=== PATIENT | male | born 1960 | race African-American/Black ===

== ENCOUNTER 2018-05-10 11:12 | Emergency (ER) | payer BC ==
[~2018-05-10] VITALS: Ht 180.3 cm; Wt 83.5 kg
--- NOTE | ~2018-05-10 | EKG ---
[facility] [place] [address] ELECTROCARDIOGRAM REPORT Name: EMILIANO CHANG [id number] Admission: 05/10/18 Attend Phys: Discharge: 05/10/18 Date of : 64 Report #: [id number] THIS REPORT FOR: //name// [facility] ED Test Date: 2018-05-10 Test Time: 11:26:44 Pat Name: EMILIANO CHANG Department: Room: Gender: M Cavalry Officer: BRITANY : 1960 Requested By: Breann Aguila Order Number: [id number] MD: Solo Flood Measurements Intervals [place] Rate: 68 P: 11 W[place]: 134 QRS: 26 QRSD: 85 T: 31 QT: 393 QTc: 418 Interpretive Statements Sinus rhythm Borderline low voltage, extremity leads Minimal, diffuse ST elevation Compared to ECG 09/20/2006 15:32:53 No significant change was found Electronically Signed On 05-11-2018 8:54:18 CDT by Solo Flood [email or web address] <ELECTRONICALLY SIGNED> By: Solo Flood MD, [facility] 05/11/18 0854 112 Solo Flood MD, [facility] /EPI
[2018-05-10] MEDS ORDERED: ZANTAC 150MG T150 MG PO (11:24)
[2018-05-10] MEDS ORDERED: NEXIUM40 MG PO (11:24)
[2018-05-10 12:00] LABS: ABSOLUTE NEUTROPHILS 2.2 thou/uL (1.4-8.2); BASOPHILS 0.4 % (0.0-2.0); EOSINOPHILS 3.8 % (0.0-3.0); HEMATOCRIT 43.2 % (42.0-52.0); HEMOGLOBIN 14.3 gm/dL (14.0-18.0); LYMPHOCYTES 40.3 % (24.0-44.0); MCH 29.5 pg (26.0-34.0); MCHC 33.1 g/dL (28.0-37.0); MCV 89.1 fL (80.0-100.0); MONOCYTES 8.2 % (1.0-8.0); PLATELET COUNT 279 thou/uL (150-400); POLYS 47.3 % (36.0-66.0); RBC 4.84 mil/uL (4.50-6.00); WBC 4.7 thou/uL (4.0-11.0)
[2018-05-10 12:12] LABS: CALCIUM 9.8 mg/dL (8.5-10.1); CREATININE 1.1 mg/dL (0.7-1.3)
[2018-05-10 12:18] LABS: ALBUMIN 4.2 g/dL (3.4-5.0); DIRECT BILIRUBIN 0.1 mg/dL (<0.1-0.3); TOTAL BILIRUBIN 0.7 mg/dL (<0.1-1.0); TOTAL PROTEIN 8.5 g/dL (6.4-8.2)
[2018-05-10 12:58] VITALS: BP 130/90
== END 2018-05-10 13:09 | disposition home or self-care (01) ==
LOC: ER 11:12
PROVIDERS: Emergency Medicine
DX: K21.9 Gastro-esophageal reflux disease without esophagitis (principal); Z87.891 Personal history of nicotine dependence

== ENCOUNTER 2018-09-01 09:21 | Emergency (ER) | payer BC ==
[~2018-09-01] VITALS: Ht 180.3 cm; Wt 84.4 kg
--- NOTE | ~2018-09-01 | EKG ---
[facility] [place] [address] ELECTROCARDIOGRAM REPORT Name: EMILIANO CHANG Room #: [facility]#: [id number] Admission: 09/01/18 Attend Phys: Discharge: 09/01/18 Date of : 64 Report #: [id number] THIS REPORT FOR: //name// [facility] Test Date: 2018-09-06 Test Time: 06:48:16 Pat Name: EMILIANO CHANG Department: Room: 208 P Gender: M Software Firmware Engineer: VERENICE : 1960 Requested By: Galo Mar Order Number: [id number] MD: Solo Flood Measurements Intervals [place] Rate: 59 P: 21 [place]: 119 QRS: 25 QRSD: 81 T: 22 QT: 410 QTc: 407 Interpretive Statements Sinus rhythm Borderline short [place] interval Borderline low voltage, extremity leads Borderline ST elevation, inferior and lateral leads Baseline wander in lead(s) V1 Compared to ECG 09/05/2018 19:08:01 ST (T wave) deviation now present Electronically Signed On 09-06-2018 7:39:18 SOLDER TECHNICIAN by Solo Flood [email or web address] <ELECTRONICALLY SIGNED> By: Solo Flood MD, [facility] 09/06/18 0739 0648 0648 Solo Flood MD, [facility] /EPI
[~2018-09-01 09:21] MED LIST: NEXIUM40 MG PO; ZANTAC 150MG T150 MG PO
[2018-09-01 09:23] VITALS: BP 127/74
[2018-09-01] MEDS ORDERED: NORCO 5-325 TA1 EACH PO (09:39)
[2018-09-01] MEDS ORDERED: NORFLEX100 MG PO (09:39)
[2018-09-01] MEDS ORDERED: PREDNISONE 10 M10 MG PO (09:39)
== END 2018-09-01 10:05 | disposition home or self-care (01) ==
LOC: ER 09:21
DX: M54.41 Lumbago with sciatica, right side (principal); M54.42 Lumbago with sciatica, left side; K21.9 Gastro-esophageal reflux disease without esophagitis; I10 Essential (primary) hypertension; E78.00 Pure hypercholesterolemia, unspecified; E78.5 Hyperlipidemia, unspecified; Z87.891 Personal history of nicotine dependence

== ENCOUNTER 2018-09-05 11:41 | Inpatient (IN) | payer BC ==
[~2018-09-05] VITALS: Ht 180.3 cm; Wt 90.4 kg
--- NOTE | ~2018-09-05 | EKG ---
[address] [address] ELECTROCARDIOGRAM REPORT Name: EMILIANO CHANG Room #: 208-P ADM IN M.R.#: [id number] Admission: 09/05/18 Attend Phys: Danny Rouse MD Discharge: Date of : 64 Report #: [id number] THIS REPORT FOR: //name// [facility] Test Date: 2018-09-05 Test Time: 16:08:00 Pat Name: EMILIANO CHANG Department: Room: 208 Gender: M Golf Club Manager: VERENICE : 1960 Requested By: Galo Mar Order Number: [id number] MD: José Mccoy Measurements Intervals [place] Rate: 57 P: 23 ID: 125 QRS: 32 QRSD: 105 T: 37 QT: 425 QTc: 414 Interpretive Statements Sinus rhythm Borderline low voltage, extremity leads Minimal ST elevation, Compared to ECG 05/10/2018 11:26:44 No significant changes Electronically Signed On 09-05-2018 19:32:14 GLOBAL REGULATORY AFFAIRS MANAGER by José Mccoy [email or web address] <ELECTRONICALLY SIGNED> By: José Mccoy MD 09/05/181931 1608 07 José Mccoy MD /MIKAL
--- NOTE | ~2018-09-05 | CATHLAB ---
[facility] [address] [place] [address] INVASIVE PROCEDURE REPORT Name: EMILIANO CHANG IV Room #: 208-P ADM IN M.R.#: [id number] Admission: 09/05/18 Attend Phys: Danny Rouse MD Discharge: Date of : 64 Date of Service: 09/06/18 1256 Report #: [id number] THIS REPORT FOR: //name// APPROVED REPORT Study performed: 09/05/2018 19:52:44 Patient Details Patient Status: In-Patient Room #: 208 The patient is a 58 year-old male Event Personnel Galo Mar Fraud Investigator, Sally Olivarez RTR, BUSINESS QUALITY ASSURANCE ANALYST Monitor, David Red RN RN, Mirza Ohara RT(R)(CV) Scrub Procedures Performed Art Access - R radial artery Coronary Angiography Only [id number] CORANG Hemostasis with Hemoband Indication Chest pain, Shortly after his angioplasty procedure, he reported chest discomfort. He was initially treated with nitroglycerin, morphine and a GI cocktail. Multiple ECGs were done, with equivocal changes. The chest pain became more intense and he had nonsustained VT on the monitor. Risk Factors Family History, Hypercholesterolemia, Coronary Artery DiseaseHypertension Previous Procedures/Diagnoses Previous PCI Procedure Narrative The Right Wrist^ was infiltrated with 1% Lidocaine subcutaneous anesthesia. A TRANSRADIAL SLENDER 6F GLICasengoTH KIT #[id number] sheath was inserted into the Right Radial Artery^. Coronary angiography was performed using coronary diagnostic catheters. The left coronary system was accessed and visualized with a JL3.5 catheter. The patient tolerated the procedure well and there were no complications associated with the procedure. Intraoperative Conscious Sedation No sedation given. [facility] [address] [place] [address] INVASIVE PROCEDURE REPORT Name: EMILIANO CHANG Adam Room #: [address] [place] [address] [place] [facility]#: [id number] Admission: 09/05/18 Attend Phys: Danny Rouse MD Discharge: Date of : 64 Date of Service: 09/06/18 1256 Report #: [id number] Fluoro Time: 1.14 minutes Dose: DAP 1560.70 cGycm2 202 mGy Contrast Type and Amount: Omnipaque 40 ml Coronary Angiography The patient's coronary anatomy is right dominant. Diagnostic Cath Left Main Patent vessel, with no flow-limiting lesions. LAD The LAD is widely patent. There is no evidence for any flow-limiting lesions within the stented area in the proximal segment of the LAD. There is ELIZA-3 blood flow down the LAD. Circumflex Unchanged from previous description. Left Ventriculography Left Ventriculography was not performed. Hemodynamics The aortic pressure is 136/89 mmHg with a mean of 110 mmHg. Conclusion 1. Indication was continuous chest pain similar to his initial presentation. His symptoms did not change with medical therapy, in fact the intensity increased. 2. Patent stent in the proximal LAD with no evidence for flow limiting lesions. 3. Continue dual antibiotic therapy. 4. The patient tolerated the procedure without any complications. <ELECTRONICALLY SIGNED> By: Galo Mar MD 09/06/18 1256 1256 1256 Galo Mar MD /INF
--- NOTE | ~2018-09-05 | HC ---
[facility] [place] [address] CONSULTATION Name: EMILIANO CHANG Room #: [address] [place] [address] IN M.R.#: [id number] Admission: 09/05/18 Attend Phys: Danny Rouse MD Discharge: Date of : 64 Report #: [id number] THIS REPORT FOR: //name// CC: Marcos Rouse DATE OF SERVICE: 09/05/2018 TYPE OF REPORT: Cardiology consultation. INDICATION: Chest pain. HISTORY OF PRESENT ILLNESS: This is a 58-year-old gentleman with a history of hypertension, GERD, hypercholesterolemia, strong family history for premature CAD, presenting with chest pain. He developed chest discomfort this morning across the chest area with numbness in both fingers. He felt mildly dyspneic and diaphoretic. He presented to the ER for an evaluation. Initial EKG reveals sinus rhythm with no acute ST-segment changes. He has serial EKGs performed and no significant change. The troponin came back at 0.13. He had persistent pain and the plan is to take the patient to the cardiac radiographer cardiac catheterization. There is no history of fever, cough, nausea or diarrhea. PAST MEDICAL HISTORY: Hypertension and hypercholesterolemia. Follows with Dr. Marcos Melton. History of GERD and recently diagnosed with sciatica. ALLERGIES: None. MEDICATIONS: Include Nexium and lisinopril 10 mg daily. SOCIAL HISTORY: Denies tobacco use. FAMILY HISTORY: Father with a history of an OR in his 40s. REVIEW OF SYSTEMS: A full 10-point review of systems performed. Only the pertinent positives and negatives are described in the HPI. PHYSICAL EXAMINATION: VITAL SIGNS: Blood pressure is 140/80 and heart rate is 75 beats per minute. GENERAL APPEARANCE: A well-developed and well-nourished male, in no acute respiratory distress. HEENT: Normocephalic and atraumatic. Oral mucosa moist. NECK: Supple. LUNGS: Clear to auscultation. CARDIOVASCULAR: Regular rate and rhythm. S1 and S2 positive. ABDOMEN: Soft and nontender. EXTREMITIES: No cyanosis and no edema. [facility] [address] [place] [address] CONSULTATION Name: EMILIANO CHANG Adam Room #: [facility] ADM IN M.R.#: [id number] Admission: 09/05/18 Attend Phys: Danny Rouse MD Discharge: Date of : 64 Report #: [id number] NEUROLOGICAL: Alert and oriented x 3. RADIOLOGICAL DATA: ECG reveals sinus rhythm, nonspecific ST-segment abnormality. LABORATORY VALUES: Troponin 0.13. ASSESSMENT AND PLAN: 1. Eic-AV-vskbsmmng myocardial infarction, the patient presenting with persistent pain, unrelieved with medical therapy. We will proceed with an emergent cardiac catheterization. 2. Hypertension, continue with lisinopril. 3. Hypercholesterolemia, start a statin medication. 4. Gastroesophageal reflux disease, continue with a proton pump inhibitor. <ELECTRONICALLY SIGNED> By: Galo Mar MD 09/06/18 0807 1454 2354 MD trisha Lea
--- NOTE | ~2018-09-05 | CATHLAB ---
[facility] [address] [place] [address] INVASIVE PROCEDURE REPORT Name: EMILIANO CHANG Room #: 208-P ADM IN .R.#: [id number] Admission: 09/05/18 Attend Phys: Danny Rouse MD Discharge: Date of : 64 Date of Service: 09/06/18 1251 Report #: [id number] THIS REPORT FOR: //name// APPROVED REPORT Study performed: 09/05/2018 13:42:51 Patient Details Patient Status: ED Room #: The patient is a 58 year-old male Event Personnel Galo Mar Ammonium Nitrate Neutralizer, Sally Olivarez RTR, ASSISTANT TRACK AND FIELD COACH Monitor, David Red RN RN, Mirza Ohara RT(R)(CV) Scrub Procedures Performed Art Access - R femoral artery* Left Heart Cath w/or w/o Coronaries [id number] [facility] [place] Place w/wo Plasty Single LAD 514092 21050 Initial Mod Sed Same Phys/QHP Gr5y 711261 92281 Mod Sed Same Phys/QHP Ea 991726 Hemostasis with Manual pressure Indication Non-STEMI (>0 to less than or equal to 6 hours), Dyspnea, Chest pain Risk Factors Family History, Hypercholesterolemia, Hypertension Procedure Narrative The Right Groin^ was infiltrated with 1% Lidocaine subcutaneous anesthesia. A PINNACLE 4FR Sheath #[id number] sheath was inserted into the RFA^. Coronary angiography was performed using coronary diagnostic catheters. The right coronary system was accessed and visualized with a JR4 catheter. The left coronary system was accessed and visualized with a JL4 catheter. The left ventricle was accessed and visualized with a ANGLED PIGTAIL catheter. Left ventricular/Aortic Valve gradient assessed via catheter pullback. Left ventriculogram was performed in 30 degree projection. Pre-demployment femoral angiogram was performed . Hemostasis was obtained with manual pressure following sheath removal without any complications. The patient tolerated the procedure well and there were no complications associated with the procedure. There was no hematoma. [facility] [address] [place] [address] INVASIVE PROCEDURE REPORT Name: EMILIANO CHANG Room #: 208-P [facility] IN ..#: [id number] Admission: 09/05/18 Attend Phys: Danny Rouse MD Discharge: Date of : 64 Date of Service: 09/06/18 1251 Report #: [id number] Intraoperative Conscious Sedation Sedation start time: 14:12 Case end Time: 15:12 Versed mg Fluoro Time: 10.17 minutes Dose: DAP 7656.40 cGycm2 1069 mGy Contrast Type and Amount: Omnipaque 215 ml Coronary Angiography The patient's coronary anatomy is right dominant. Diagnostic Cath Left Main This is a patent vessel, with no flow-limiting lesions. LAD There is a severe, discrete stenosis in the proximal segment, at least 95%. There is mild diffuse disease in the mid segment, 30%. Diagonal 1 Small-caliber vessel with mild to moderate diffuse disease proximally, 40%. Circumflex There is a mild to moderate stenosis in the proximal segment, 40%. OM1 This is a patent vessel, with no flow-limiting lesions. OM2 This is a moderate size caliber vessel, with mild disease proximally, 20%. Right Coronary This is a dominant vessel, with mild disease in the mid segment, 20%. R PDA This is a patent vessel, with no flow-limiting lesions. RPLV This is a patent vessel, with no flow-limiting lesions. Left Ventriculography The left ventricle is normal in size with normal contractility. The left ventricular ejection fraction is estimated to be 55-60%. Hemodynamics The aortic pressure is 137/82 mmHg with a mean of 106 mmHg. The left ventricular pressure is 138/11 mmHg with a mean of mmHg. The left ventricular end diastolic pressure is 35 mmHg. PCI Technique Lesion Percutaneous coronary intervention was performed on the proximal left anterior descending artery segment. The lesion stenosis prior to intervention was 95% with ELIZA 3 flow. A VISTA 6FR JL4 #[id number] [place] [address] INVASIVE PROCEDURE REPORT Name: EMILIANO CHANG Room #: 208-P ADM IN M.R.#: [id number] Admission: 09/05/18 Attend Phys: Danny Rouse MD Discharge: Date of : 64 Date of Service: 09/06/18 1251 Report #: [id number] Catheter was used to engage the ostium. A Luge Wire .014 x 182CM #[id number] Interventional Guidewire was used to cross the lesion. BALLOON DILATION A Balloon catheter Euphora RX 2.5 x 12 #[id number] was inserted and inflated up to 8.00atm for 12seconds. STENT DEPLOYMENT A drug-eluting stent RESOLUTE KENNY RX 3.0 X 15 #[id number] was inserted and inflated up to 16.00atm for 25seconds. POST STENT DEPLOYMENT BALLOON DILATION A Balloon catheter TREK NC RX 3.25 X 12 #[id number] was inserted and inflated up to 18.00atm for 18seconds. Additional Inflation: 18.00atm for 14seconds. Final angiography reveals 0 % stenosis with ELIZA 3 flow. Conclusion 1. Successful insertion of a drug-eluting stent into the proximal LAD segment. 2. Mild to moderate disease in the LAD, left circumflex and RCA. 3. Normal LV systolic function. 4. Recommend dual antiplatelet therapy and aggressive risk factor management. <ELECTRONICALLY SIGNED> By: Galo Mar MD 09/06/18 1251 50 50 Galo Mar MD /INF
--- NOTE | ~2018-09-05 | EKG ---
[address] [address] ELECTROCARDIOGRAM REPORT Name: EMILIANO CHANG Room #: 208-P ADM IN M.R.#: [id number] Admission: 09/05/18 Attend Phys: Danny Rouse MD Discharge: Date of : 64 Report #: [id number] THIS REPORT FOR: //name// [facility] Test Date: 2018-09-05 Test Time: 19:08:01 Pat Name: EMILIANO CHANG Department: Room: 208 P Gender: M Over Short And Damage Clerk: connie : 1960 Requested By: Galo Mar Order Number: [id number] MD: José Mccoy Measurements Intervals [place] Rate: 67 P: 23 [place]: 111 QRS: 18 QRSD: 86 T: 16 QT: 410 QTc: 433 Interpretive Statements Sinus rhythm Borderline short [place] interval Compared to ECG 05/10/2018 11:26:44 ST (T wave) deviation no longer present Electronically Signed On 09-05-2018 19:34:37 DIRECTOR OF MUSIC by José Mccoy [email or web address] <ELECTRONICALLY SIGNED> By: José Mccoy MD 09/05/18 1934 07 07 José Mccoy MD /MIKAL
--- NOTE | ~2018-09-05 | EKG ---
[address] [address] ELECTROCARDIOGRAM REPORT Name: EMILIANO CHANG Room #: 208-P ADM IN M.R.#: [id number] Admission: 09/05/18 Attend Phys: Danny Rouse MD Discharge: Date of : 64 Report #: [id number] THIS REPORT FOR: //name// [facility] ED Test Date: 2018-09-05 Test Time: 12:32:01 Pat Name: EMILIANO CHANG Department: Room: 208 Gender: M Distance Learning Unit Leader: JOCY : 1960 Requested By: Peter Brady Order Number: [id number] MD: José Mccoy Measurements Intervals [place] Rate: 60 P: 23 [place]: 131 QRS: 30 QRSD: 91 T: 56 QT: 416 QTc: 416 Interpretive Statements Sinus rhythm Borderline low voltage, extremity leads ST elevation diffuse similar to prior Compared to ECG 05/10/2018 11:26:44 No significant changes Electronically Signed On 09-05-2018 19:30:29 HOLD WORKER by José Mccoy [email or web address] <ELECTRONICALLY SIGNED> By: José Mccoy MD 09/05/181929 123 123 José Mccoy MD /MIKAL
--- NOTE | ~2018-09-05 | EKG ---
[address] [address] ELECTROCARDIOGRAM REPORT Name: EMILIANO CHANG Room #: 208-P ADM IN M.R.#: [id number] Admission: 09/05/18 Attend Phys: Danny Rouse MD Discharge: Date of : 64 Report #: [id number] THIS REPORT FOR: //name// [facility] ED Test Date: 2018-09-05 Test Time: 11:49:31 Pat Name: EMILIANO CHANG Department: Room: 208 Gender: M Pinked Edge Sewing Machine Operator: JOCY : 1960 Requested By: Peter Brady Order Number: [id number] MD: José Mccoy Measurements Intervals [place] Rate: 71 P: 29 [place]: 125 QRS: 38 QRSD: 91 T: 62 QT: 402 QTc: 437 Interpretive Statements Sinus rhythm Probable left atrial enlargement Borderline low voltage, extremity leads Diffuse ST elevation similar to prior Compared to ECG 05/10/2018 11:26:44 No significant changes Electronically Signed On 09-05-2018 19:30:08 HOSPITAL INSURANCE CLERK by José Mccoy [email or web address] <ELECTRONICALLY SIGNED> By: José Mccoy MD 09/05/18 1930 1149 1149 José Mccoy MD /EPI
[~2018-09-05 11:41] MED LIST changes: +NORCO 5-325 TA1 EACH PO; +NORFLEX100 MG PO; +PREDNISONE 10 M10 MG PO
[2018-09-05 11:43] VITALS: BP 151/85
[2018-09-05 11:58] LABS: ABSOLUTE NEUTROPHILS 3.3 thou/uL (1.4-8.2); BASOPHILS 0.6 % (0.0-2.0); EOSINOPHILS 1.7 % (0.0-3.0); HEMATOCRIT 42.4 % (42.0-52.0); HEMOGLOBIN 14.1 gm/dL (14.0-18.0); LYMPHOCYTES 45.8 % (24.0-44.0); MCH 29.3 pg (26.0-34.0); MCHC 33.2 g/dL (28.0-37.0); MCV 88.3 fL (80.0-100.0); MONOCYTES 7.6 % (1.0-8.0); PLATELET COUNT 294 thou/uL (150-400); POLYS 44.3 % (36.0-66.0); RDW 13.1 % (10.5-14.5); WBC 7.5 thou/uL (4.0-11.0)
[2018-09-05 12:07] LABS: CALCIUM 10.1 mg/dL (8.5-10.1); CREATININE 1.1 mg/dL (0.7-1.3); POTASSIUM 3.4 mmol/L (3.5-5.1)
[2018-09-05 12:16] LABS: TROPONIN-I 0.13 ng/mL (<0.06)
[2018-09-05 14:02] VITALS: BP 116/74
[2018-09-05 19:19] VITALS: BP 137/91
[2018-09-06 00:05] VITALS: BP 102/70
[2018-09-06 04:02] LABS: CALCIUM 8.6 mg/dL (8.5-10.1); TOTAL BILIRUBIN 0.5 mg/dL (<0.1-1.0); TOTAL PROTEIN 6.2 g/dL (6.4-8.2)
[2018-09-06 04:03] LABS: TROPONIN-I 3.25 ng/mL (<0.06)
[2018-09-06 04:23] VITALS: BP 114/73
[2018-09-06 04:30] LABS: HEMATOCRIT 37.1 % (42.0-52.0); HEMOGLOBIN 12.3 gm/dL (14.0-18.0); MCH 29.2 pg (26.0-34.0); MCHC 33.1 g/dL (28.0-37.0); MCV 88.4 fL (80.0-100.0); RBC 4.19 mil/uL (4.50-6.00); RDW 12.8 % (10.5-14.5); WBC 6.7 thou/uL (4.0-11.0)
[2018-09-06 08:47] VITALS: BP 110/77
[2018-09-06 12:23] VITALS: BP 118/79
[2018-09-06 16:00] VITALS: BP 122/75
[2018-09-06 19:43] VITALS: BP 123/86
[2018-09-07 00:16] VITALS: BP 137/82
[2018-09-07 04:47] VITALS: BP 150/94
[2018-09-07 08:09] VITALS: BP 142/92
[2018-09-07] MEDS ORDERED: ATORVASTATIN CA40 MG PO (08:41)
[2018-09-07] MEDS ORDERED: EFFIENT10 MG PO (08:41)
[2018-09-07] MEDS ORDERED: CEFUROXIME500 MG PO (08:41)
[2018-09-07] MEDS ORDERED: ASPIR 8181 MG PO (08:42)
[2018-09-07] MEDS ORDERED: ALTACE5 MG PO (08:42)
[2018-09-07 09:14] VITALS: BP 142/92
== END 2018-09-07 11:01 | disposition home or self-care (01) | DRG 247 ==
LOC: ER 11:41 → EROBS 14:14 → TBA 14:14 → 2N 15:34 → ENTRNSPT 09-07 10:55 → 2N 09-07 11:01
PROVIDERS: Emergency Medicine; Internal Medicine Cardiovascular Disease
PROC: 027034Z Dilation of Coronary Artery, One Artery with Drug-eluting Intraluminal Device, Percutaneous Approach (ICD-10-PCS; principal; 2018-09-06)
PROC: 4A023N7 Measurement of Cardiac Sampling and Pressure, Left Heart, Percutaneous Approach (ICD-10-PCS; principal; 2018-09-06)
PROC: B2151ZZ Fluoroscopy of Left Heart using Low Osmolar Contrast (ICD-10-PCS; principal; 2018-09-06)
PROC: B41J1ZZ Fluoroscopy of Other Lower Arteries using Low Osmolar Contrast (ICD-10-PCS; principal; 2018-09-06)
PROC: B2111ZZ Fluoroscopy of Multiple Coronary Arteries using Low Osmolar Contrast (ICD-10-PCS; principal; 2018-09-06)
DX: I21.3 ST elevation (STEMI) myocardial infarction of unspecified site (principal); I25.10 Atherosclerotic heart disease of native coronary artery without angina pectoris; I10 Essential (primary) hypertension; E78.00 Pure hypercholesterolemia, unspecified; M54.30 Sciatica, unspecified side; K21.9 Gastro-esophageal reflux disease without esophagitis; Z87.891 Personal history of nicotine dependence; Z79.899 Other long term (current) drug therapy; Z82.49 Family history of ischemic heart disease and other diseases of the circulatory system
CPT/HCPCS: 10081

== ENCOUNTER 2018-10-25 12:09 | Emergency (ER) | payer BC ==
[~2018-10-25] VITALS: Ht 180.3 cm; Wt 85.3 kg
[~2018-10-25 12:09] MED LIST changes: +ALTACE5 MG PO; +ASPIR 8181 MG PO; +ATORVASTATIN CA40 MG PO; +CEFUROXIME500 MG PO; +EFFIENT10 MG PO
[2018-10-25 13:47] LABS: ABSOLUTE NEUTROPHILS 1.8 thou/uL (1.4-8.2); BASOPHILS 0.6 % (0.0-2.0); EOSINOPHILS 3.1 % (0.0-3.0); LYMPHOCYTES 44.6 % (24.0-44.0); MCH 29.3 pg (26.0-34.0); MCHC 33.3 g/dL (28.0-37.0); MCV 87.8 fL (80.0-100.0); MONOCYTES 9.5 % (1.0-8.0); PLATELET COUNT 268 thou/uL (150-400); POLYS 42.2 % (36.0-66.0); RBC 4.78 mil/uL (4.50-6.00); RDW 12.5 % (10.5-14.5); WBC 4.2 thou/uL (4.0-11.0)
[2018-10-25 13:52] LABS: ANION GAP 4 mmol/L (7-16); BUN 12 mg/dL (7-18); CALCIUM 9.6 mg/dL (8.5-10.1); CHLORIDE 104 mmol/L (98-107); CO2 32 mmol/L (21-32); GLUCOSE 92 mg/dL (74-106); POTASSIUM 4.2 mmol/L (3.5-5.1); SODIUM 140 mmol/L (136-145)
[2018-10-25 14:03] LABS: ALBUMIN 4.1 g/dL (3.4-5.0); SGOT 33 U/L (15-37); SGPT 92 U/L (30-65); TOTAL BILIRUBIN 0.5 mg/dL (<0.1-1.0); TOTAL PROTEIN 8.1 g/dL (6.4-8.2); TROPONIN-I <0.06 ng/mL (<0.06)
[2018-10-25] MEDS ORDERED: NORCO 5-325 TA1 EACH PO (15:56)
[2018-10-25 16:20] VITALS: BP 144/82
--- NOTE | 2018-10-26 08:32 | EKG ---
[place] [address] [facility] [place] [address] ELECTROCARDIOGRAM REPORT Name: EMILIANO CHANG [id number] Admission: 10/25/18 Attend Phys: Discharge: 10/25/18 Date of : 64 Report #: [id number] THIS REPORT FOR: //name// [facility] ED Test Date: 2018-10-25 Test Time: 12:20:59 Pat Name: EMILIANO CHANG Department: Room: Gender: Geography Faculty Member: [facility] : 1960 Requested By: Peter Brady Order Number: [id number] MD: Solo Flood Measurements Intervals [place] Rate: 71 P: 9 GA: 135 QRS: 20 QRSD: 81 T: 23 QT: 402 QTc: 437 Interpretive Statements Sinus rhythm Minimal ST elevation Compared to ECG 09/06/2018 06:48:16 No significant changes Electronically Signed On 10-26-2018 8:32:25 BLOOD BANK MANAGER by Solo Flood [email or web address] <ELECTRONICALLY SIGNED> By: Solo Flood MD, [facility] 10/26/18 0832 1220 1220 Solo Flood MD, FACC /EPI
== END 2018-10-25 16:20 | disposition home or self-care (01) ==
LOC: ER 12:09
PROVIDERS: Emergency Medicine
DX: R07.89 Other chest pain (principal); M79.9 Soft tissue disorder, unspecified; I10 Essential (primary) hypertension; K21.9 Gastro-esophageal reflux disease without esophagitis; E78.00 Pure hypercholesterolemia, unspecified; M54.30 Sciatica, unspecified side; I25.2 Old myocardial infarction; Z95.5 Presence of coronary angioplasty implant and graft; Z87.891 Personal history of nicotine dependence

== ENCOUNTER 2018-12-01 14:28 | Emergency (ER) | payer BC ==
[~2018-12-01] VITALS: Ht 180.3 cm; Wt 87.5 kg
[2018-12-01 14:29] VITALS: BP 165/98
[2018-12-01] MEDS ORDERED: ZANTAC 150MG T150 MG PO (14:34)
[2018-12-01] MEDS ORDERED: SALINE NASAL M126 ML NASAL (14:55)
[2018-12-01] MEDS ORDERED: AUGMENTIN 875-1 EACH PO (14:55)
== END 2018-12-01 15:35 | disposition home or self-care (01) ==
LOC: ER 14:28
DX: J32.9 Chronic sinusitis, unspecified (principal); R05 Cough; K21.9 Gastro-esophageal reflux disease without esophagitis; I10 Essential (primary) hypertension; E78.00 Pure hypercholesterolemia, unspecified; M54.30 Sciatica, unspecified side; Z95.5 Presence of coronary angioplasty implant and graft; Z87.891 Personal history of nicotine dependence

== ENCOUNTER 2018-12-21 20:55 | Emergency (ER) | payer BC ==
[~2018-12-21] VITALS: Ht 180.3 cm; Wt 87.1 kg
[~2018-12-21 20:55] MED LIST changes: +AUGMENTIN 875-1 EACH PO; +SALINE NASAL M126 ML NASAL
[2018-12-21] MEDS ORDERED: TRAMADOL 50 MG50 MG PO (22:33)
[2018-12-21 22:45] VITALS: BP 147/84
--- NOTE | 2018-12-22 17:09 | EKG ---
[place] [address] [facility] [place] [address] ELECTROCARDIOGRAM REPORT Name: EMILIANO CHANG [facility] [id number] ������������������ Admission: 12/21/18 ������������������ Attend Phys: Discharge: 12/21/18 ������������������ Date of : 64 Report #: [id number] ����������������������������������������������������������������� [id number] THIS REPORT FOR: //name// [facility] [place] [facility] ED Test Date: 2018-12-21 Test Time: 21:07:22 Pat Name: EMILIANO CHANG Department: Room: Gender: Kosher Dietary Service Supervisor: Carole : 1960 Requested By: Karla Garcia Order Number: [id number] MD: Solo Flood Measurements Intervals [place] Rate: 79 P: 20 [place]: 127 QRS: 37 QRSD: 89 T: 43 QT: 391 QTc: 449 Interpretive Statements Sinus rhythm Minimal, diffuse repolarization abnormality Compared to ECG 10/25/2018 12:20:59 ST (T wave) deviation still present Electronically Signed On 12-22-2018 17:09:38 CDT by Solo Flood [email or web address] ��������������������������������������������� <ELECTRONICALLY SIGNED> ���������������������������������������� By: Solo Flood MD, [facility] ��������������������������������������������� 12/22/18 1709 06 06 Solo Flood MD, FACC /EPI
== END 2018-12-21 22:47 | disposition home or self-care (01) ==
LOC: ER 20:55
DX: M54.5 Low back pain (principal); K21.9 Gastro-esophageal reflux disease without esophagitis; I10 Essential (primary) hypertension; E78.00 Pure hypercholesterolemia, unspecified; I25.2 Old myocardial infarction; Z87.891 Personal history of nicotine dependence; Z79.899 Other long term (current) drug therapy

== ENCOUNTER 2019-03-16 09:12 | Observation (INO) | payer BC ==
[~2019-03-16] VITALS: Ht 180.3 cm; Wt 87.1 kg
[2019-03-16 09:12] VITALS: BP 164/92
[~2019-03-16 09:12] MED LIST changes: +TRAMADOL 50 MG50 MG PO
[2019-03-16] MEDS ORDERED: ORPHENADRINE C100 M2 PO (09:54)
[2019-03-16] MEDS ORDERED: TRAMADOL100 MG PO (09:54)
[2019-03-16 09:59] LABS: BASOPHILS 0.7 % (0.0-2.0); EOSINOPHILS 2.1 % (0.0-3.0); HEMATOCRIT 40.1 % (42.0-52.0); HEMOGLOBIN 13.1 gm/dL (14.0-18.0); LYMPHOCYTES 40.2 % (24.0-44.0); MCH 28.5 pg (26.0-34.0); MCHC 32.7 g/dL (28.0-37.0); MCV 87.1 fL (80.0-100.0); MONOCYTES 7.9 % (1.0-8.0); PLATELET COUNT 266 thou/uL (150-400); POLYS 49.1 % (36.0-66.0); RDW 12.8 % (10.5-14.5); WBC 4.1 thou/uL (4.0-11.0)
[2019-03-16 10:12] LABS: ANION GAP 8 mmol/L (7-16); BUN 8 mg/dL (7-18); CALCIUM 9.5 mg/dL (8.5-10.1); CHLORIDE 104 mmol/L (98-107); CO2 28 mmol/L (21-32); GLUCOSE 140 mg/dL (74-106); POTASSIUM 3.6 mmol/L (3.5-5.1); SODIUM 140 mmol/L (136-145)
[2019-03-16 10:17] LABS: ALBUMIN 3.9 g/dL (3.4-5.0); SGOT 22 U/L (15-37); SGPT 43 U/L (30-65); TOTAL BILIRUBIN 0.6 mg/dL (<0.1-1.0); TOTAL PROTEIN 7.5 g/dL (6.4-8.2); TROPONIN-I <0.06 ng/mL (<0.06)
[2019-03-16] MEDS ORDERED: LIPITOR40 MG PO (11:11)
[2019-03-16] MEDS ORDERED: OMEPRAZOLE 20 M20 M1 PO (11:13)
[2019-03-16] MEDS ORDERED: ZANTAC 150MG T150 MG PO (11:16)
[2019-03-16 12:10] VITALS: BP 137/83
[2019-03-16 12:10] LABS: APTT 27.3 Seconds (24.5-32.8); D-DIMER 0.22 ug/mLFEU (0.19-0.50); PROTIME 10.7 Seconds (9.3-11.4)
[2019-03-16 12:26] VITALS: BP 137/83
[2019-03-16 12:49] VITALS: BP 148/80
--- NOTE | 2019-03-16 13:50 | NUR ---
REPORT FROM GE ROWLAND. TO UNIT BY WC, ACCOMPANIED BY COST RECOVERY TECHNICIAN. ORIENTED TO UNIT, FALL PRECAUTIONS. VSS. CULLEN HOLDEN, SEES. DOWN NOW FOR ECHO. WILL CONTINUE TO FOLLOW.
--- NOTE | 2019-03-16 14:29 | 2DMMODE ---
[facility] [address] [place] [address] 2 D/M-MODE ECHOCARDIOGRAM Name: EMILIANO CHANG IV Room #: 209-P [facility] IN [facility].#: [id number] ������������� Admission: 03/16/19 ������������� Attend Phys: Jeremiah Gonsalves MD Discharge: ��� ������������� ��� Date of : 64 Date of Service: 03/16/19 1429 �� Report #: [id number] �������� ��������������������������������������������[id number] THIS REPORT FOR: //name// APPROVED REPORT Study performed: 03/16/2019 13:49:13 EXAM: Comprehensive 2D, Doppler, and color-flow Echocardiogram Patient Location: Echo lab Room #: 209 Status: routine BSA: 2.07 HR: 61 bpm BP: 148/80 mmHg Rhythm: NSR Other Information Study Quality: Good Indications Chest Pain Hx: RI, stent, HTN. 2D Dimensions RVDd: 36.82 mm IVSd: 10.52 (7-11mm) LVOT Diam: 21.40 (18-24mm) LVDd: 51.76 mm PWd: 9.90 (7-11mm) Ascending Ao: 39.24 (22-36mm) LVDs: 35.15 (25-40mm) Aortic Root: 35.20 mm Volumes Left Atrial Volume (Systole) Single Plane 4CH: 39.46 mL Single Plane 2CH: 41.29 mL LA ESV Index: 21.00 mL/m2 Aortic Valve AoV Peak Eric.: 1.53 m/s AO Peak Gr.: 9.34 mmHg LVOT Max P.67 mmHg LVOT Max V: 1.08 m/s KANDACE Vmax: 2.54 cm2 Mitral Valve E/A Ratio: 1.2 MV Decel. Time: 164.17 ms [facility] [place] [address] [place] [address] 2 D/M-MODE ECHOCARDIOGRAM Name: EMILIANO CHANG Room #: [address] [place] [address] [place] [facility]#: [id number] ������������� Admission: 03/16/19 ������������� Attend Phys: Jeremiah Gonsalves MD Discharge: ��� ������������� ��� Date of : 64 Date of Service: 03/16/19 1429 �� Report #: [id number] �������� ��������������������������������������������[id number] MV E Max Eric.: 1.05 m/s MV A Eric.: 0.91 m/s MV PHT: 47.61 ms IVRT: 78.43 ms Pulmonary Valve PV Peak Eric.: 0.97 m/s PV Peak Gr.: 3.79 mmHg Pulmonary Vein P Vein S: 0.79 m/s P Vein A: 0.34 m/s P Vein D: 0.51 m/s P Vein A Dur.: 115.3 msec P Vein S/D Ratio: 1.55 Tricuspid Valve TR Peak Eric.: 2.80 m/s RAP Estimate: 5.00 mmHg TR Peak Gr.: 31.30 mmHg Left Ventricle The left ventricle is normal size. There is normal LV segmental wall motion. There is normal left ventricular wall thickness. Left ventricular systolic function is normal. LVEF is 60-65%. Moderate diastolic dysfunction is present (pseudonormal filling). Right Ventricle The right ventricle is normal size. The right ventricular systolic function is normal. Atria The left atrium size is normal. The right atrium size is normal. Aortic Valve The aortic valve is normal in structure. Mild aortic regurgitation. There is no aortic valvular stenosis. Mitral Valve The mitral valve is normal in structure. Mild mitral annular calcification. Trace mitral regurgitation. Tricuspid Valve The tricuspid valve is normal in structure. Mild tricuspid regurgitation. Estimated PAP is 35-40mmHg. Pulmonic Valve The pulmonary valve is normal in structure. Mild pulmonic regurgitation. [address] [address] 2 D/M-MODE ECHOCARDIOGRAM Name: EMILIANO CHANG Room #: 209-P [facility] IN [facility]#: [id number] ������������� Admission: 03/16/19 ������������� Attend Phys: Jeremiah Gonsalves MD Discharge: ��� ������������� ��� Date of : 64 Date of Service: 03/16/19 1429 �� Report #: [id number] �������� ��������������������������������������������[id number] Great Vessels The aortic root is normal in size. The ascending aorta is normal in size. IVC is normal in size and collapses >50% with inspiration. Pericardium There is no pericardial effusion. <Conclusion> The left ventricle is normal size. There is normal left ventricular wall thickness. Left ventricular systolic function is normal. Moderate diastolic dysfunction is present (pseudonormal filling). The right ventricle is normal size. The left atrium size is normal. Mild aortic regurgitation. Mild mitral annular calcification. Trace mitral regurgitation. Mild tricuspid regurgitation. Estimated PAP is 35-40mmHg. ��������������������������������������������� <ELECTRONICALLY SIGNED> ���������������������������������������� By: Galo Mar MD ��������������������������������������������� 03/16/19 1429 1429 1429 Galo Mar MD /INF
--- NOTE | 2019-03-16 17:07 | NUR ---
C/O CHEST PAIN. CARDIAC NOT RULED OUT, BUT HE REPORTS PAIN AND NUMBNESS IN HIS LEFT ARM/ARMPIT HAS BEEN A CHRONIC ISSUE SINCE SPINE SURGERY ON HIS NECK. MORPHINE AND NTG GIVEN ORDERED. VS STABLE, 170/94, HR58, SAT 99% ON ROOM AIR. O2 PLACED AT 2L PER NC. SINUS RHYTHM PER TELE. WILL CONTINUE TO MONITOR CLOSELY.
[2019-03-16 19:22] LABS: AMP/METHAMP Negative (Negative); BARBITURATES Negative (Negative); BENZODIAZEPINES Negative (Negative); COCAINE Negative (Negative); METHADONE Negative (Negative); OPIATES POSITIVE (Negative); PCP Negative (Negative)
[2019-03-16 20:35] VITALS: BP 138/81
[2019-03-17 00:40] VITALS: BP 138/78
--- NOTE | 2019-03-17 02:39 | NUR ---
PT IS ALERT AND ORIENTED. UP AD ADDI IN ROOM. PT HAD ONE EPISODE OF NAUSEA AND VOMITING AT SHIFT CHANGE RELIEVED BY ZOFRAN.PT OTHERWISE REPORTS THE L SIDED CHEST SORENESS AT 2/10. RADIATES TO L ARMPIT AND ENTIRE L ARM. SOME BULGING NOTED IN MID ABDOMEN. PT STATED ITS BEEN THERE. HE STATES HE HAD A BM TWO DAYS AGO. BOWEL SOUNDS ARE PRESENT. PT IS STABLE ON ROOM AIR.SB/SR ON TELEMETRY. NO FURTHER CONCERNS AT THIS TIME.
[2019-03-17 04:45] VITALS: BP 125/74
[2019-03-17 06:33] LABS: ABSOLUTE NEUTROPHILS 1.9 thou/uL (1.4-8.2); BASOPHILS 0.5 % (0.0-2.0); EOSINOPHILS 3.5 % (0.0-3.0); HEMATOCRIT 39.3 % (42.0-52.0); LYMPHOCYTES 45.3 % (24.0-44.0); MCH 28.7 pg (26.0-34.0); MONOCYTES 7.9 % (1.0-8.0); PLATELET COUNT 235 thou/uL (150-400); POLYS 42.8 % (36.0-66.0); RBC 4.52 mil/uL (4.50-6.00); RDW 12.7 % (10.5-14.5); WBC 4.4 thou/uL (4.0-11.0)
[2019-03-17 06:57] LABS: CHOLESTEROL 127 mg/dL (<200); HDL CHOLESTEROL 42 mg/dL (>40); LDL CHOLESTEROL 73 mg/dL (<100); TRIGLYCERIDE 62 mg/dL (<150); VLDL 12 mg/dL (<40)
[2019-03-17 06:59] LABS: ANION GAP 7 mmol/L (7-16); BUN 12 mg/dL (7-18); CALCIUM 9.4 mg/dL (8.5-10.1); CHLORIDE 105 mmol/L (98-107); CO2 28 mmol/L (21-32); GLUCOSE 107 mg/dL (74-106); POTASSIUM 4.4 mmol/L (3.5-5.1); SODIUM 140 mmol/L (136-145); TROPONIN-I <0.06 ng/mL (<0.06)
--- NOTE | 2019-03-17 07:21 | EKG ---
[address] [address] ELECTROCARDIOGRAM REPORT Name: EMILIANO CHANG Room #: 209-P [facility] M.R.#: [id number] ������������������ Admission: 03/16/19 ������������������ Attend Phys: Jeremiah Gonsalves MD Discharge: ������������������ Date of : 64 Report #: [id number] ����������������������������������������������������������������� [id number] THIS REPORT FOR: //name// [facility] ED Test Date: 2019-03-16 Test Time: 09:30:30 Pat Name: EMILIANO CHANG Department: Room: 209 Gender: M Dietary Manager: YUE : 1960 Requested By: John Caceres Order Number: [id number] MD: Solo Flood Measurements Intervals [place] Rate: 74 P: 20 SD: 137 QRS: 29 QRSD: 85 T: 39 QT: 389 QTc: 432 Interpretive Statements Sinus rhythm Minimal ST elevation, probably early repolarization Baseline wander in lead(s) II,III,aVF Compared to ECG 12/21/2018 21:07:22 no significant change was found Electronically Signed On 03-17-2019 7:21:39 CDT by Solo Flood [email or web address] ��������������������������������������������� <ELECTRONICALLY SIGNED> ���������������������������������������� By: Solo Flood MD, [facility] ��������������������������������������������� 03/17/19 0721 Solo Flood MD, [facility] /EPI
[2019-03-17 07:57] VITALS: BP 139/83
[2019-03-17 10:11] VITALS: BP 139/83
--- NOTE | 2019-03-17 11:01 | NUR ---
ASSUMED CARE OF PT AT SHIFT CHANGE. ASSESSMENT CHARTED. MEDS GIVEN PER DEC. PT ALERT AND ORIENTED, UP AD ADDI, VSS, NO C/O PAIN, DENIES CP, SOB. O2 SATS WNL ON ROOM AIR. DC ORDERS ACKNOWLEDGED AND IMPLEMENTED. DC PAPERWORK DISCUSSED WITH PT AND COMMUNICATES UNDERSTANDING. PT LEFT UNIT BY TRANSPORT AT APPROX 1040 WITH ALL BELONGINGS. IV REMOVED, TELE REMOVED.
== END 2019-03-17 10:40 | disposition home or self-care (01) ==
LOC: ER 09:12 → EROBS 11:19 → 2N 11:19 → ENTRNSPT 03-17 10:29 → EDTRNSPTSTS 03-17 10:33 → 2N 03-17 10:40
PROVIDERS: Emergency Medicine; Nurse Practitioner; ADMIT Hospitalist
DX: R07.89 Other chest pain (principal); R06.02 Shortness of breath; M54.30 Sciatica, unspecified side; I25.10 Atherosclerotic heart disease of native coronary artery without angina pectoris; E78.5 Hyperlipidemia, unspecified; I10 Essential (primary) hypertension; K21.9 Gastro-esophageal reflux disease without esophagitis; E78.00 Pure hypercholesterolemia, unspecified; I25.2 Old myocardial infarction; Z95.5 Presence of coronary angioplasty implant and graft; Z87.891 Personal history of nicotine dependence; Z79.82 Long term (current) use of aspirin; Z79.899 Other long term (current) drug therapy

== ENCOUNTER 2019-05-28 07:19 | Emergency (ER) | payer BC ==
[~2019-05-28] VITALS: Ht 180.3 cm; Wt 87.1 kg
[~2019-05-28 07:19] MED LIST changes: +LIPITOR40 MG PO; +OMEPRAZOLE 20 M20 M1 PO; +ORPHENADRINE C100 M2 PO; +TRAMADOL100 MG PO
[2019-05-28] MEDS ORDERED: NORFLEX100 MG PO (07:57)
[2019-05-28] MEDS ORDERED: TRAMADOL 50 MG50 MG PO (07:57)
[2019-05-28] MEDS ORDERED: PREDNISONE 20 M20 MG PO (08:13)
[2019-05-28 08:29] VITALS: BP 146/87
--- NOTE | 2019-05-29 11:42 | EKG ---
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
== END 2019-05-28 08:33 | disposition home or self-care (01) ==
LOC: ER 07:19
DX: T63.461A Toxic effect of venom of wasps, accidental (unintentional), initial encounter (principal); M43.6 Torticollis; K21.9 Gastro-esophageal reflux disease without esophagitis; I10 Essential (primary) hypertension; E78.00 Pure hypercholesterolemia, unspecified; Z95.5 Presence of coronary angioplasty implant and graft; Z87.891 Personal history of nicotine dependence

== ENCOUNTER 2019-06-08 07:24 | Emergency (ER) | payer BC ==
[~2019-06-08] VITALS: Ht 180.3 cm; Wt 87.1 kg
[~2019-06-08 07:24] MED LIST changes: +PREDNISONE 20 M20 MG PO
[2019-06-08] MEDS ORDERED: NAPROSYN500 MG PO (08:57)
[2019-06-08 09:40] VITALS: BP 180/114
== END 2019-06-08 09:40 | disposition home or self-care (01) ==
LOC: ER 07:24
DX: M79.602 Pain in left arm (principal); I10 Essential (primary) hypertension; K21.9 Gastro-esophageal reflux disease without esophagitis; E78.00 Pure hypercholesterolemia, unspecified; Z95.5 Presence of coronary angioplasty implant and graft; Z87.891 Personal history of nicotine dependence

== ENCOUNTER → 2020-07-11 | Outpatient (CLI) | payer BC ==
[~2020-07-11] MED LIST changes: +NAPROSYN500 MG PO
== END ==
LOC: SJCVCIMAG 09:50
PROVIDERS: ATTEND Internal Medicine Cardiovascular Disease
DX: I25.10 Atherosclerotic heart disease of native coronary artery without angina pectoris (principal); I49.3 Ventricular premature depolarization; R00.0 Tachycardia, unspecified; Z79.899 Other long term (current) drug therapy

== ENCOUNTER 2020-09-25 21:31 | Emergency (ER) | payer BC ==
[~2020-09-25] VITALS: Ht 177.8 cm; Wt 95.3 kg
[2020-09-25 22:25] LABS: ABSOLUTE NEUTROPHILS 2.7 thou/uL (1.4-8.2); BASOPHILS 0.7 % (0.0-2.0); EOSINOPHILS 1.7 % (0.0-3.0); HEMATOCRIT 36.6 % (42.0-52.0); HEMOGLOBIN 12.2 gm/dL (14.0-18.0); LYMPHOCYTES 37.8 % (24.0-44.0); MCH 29.5 pg (26.0-34.0); MCHC 33.3 g/dL (28.0-37.0); MCV 88.6 fL (80.0-100.0); MONOCYTES 7.7 % (1.0-8.0); PLATELET COUNT 276 thou/uL (150-400); POLYS 52.1 % (36.0-66.0); RBC 4.13 mil/uL (4.50-6.00); RDW 13.3 % (10.5-14.5); WBC 5.2 thou/uL (4.0-11.0)
[2020-09-25 22:34] LABS: CALCIUM 9.3 mg/dL (8.5-10.1); CREATININE 0.8 mg/dL (0.7-1.3); POTASSIUM 3.4 mmol/L (3.5-5.1)
[2020-09-25 22:40] LABS: ALBUMIN 3.7 g/dL (3.4-5.0); TOTAL BILIRUBIN 0.5 mg/dL (0.2-1.0); TOTAL PROTEIN 7.1 g/dL (6.4-8.2)
[2020-09-26 00:59] VITALS: BP 172/88
== END 2020-09-26 01:00 | disposition home or self-care (01) ==
LOC: ER 21:31
PROVIDERS: Emergency Medicine
DX: G62.9 Polyneuropathy, unspecified (principal); K21.9 Gastro-esophageal reflux disease without esophagitis; I10 Essential (primary) hypertension; E78.00 Pure hypercholesterolemia, unspecified; I25.2 Old myocardial infarction; Z98.890 Other specified postprocedural states; Z86.73 Personal history of transient ischemic attack (TIA), and cerebral infarction without residual deficits; Z95.5 Presence of coronary angioplasty implant and graft; Z79.82 Long term (current) use of aspirin; Z79.899 Other long term (current) drug therapy; Z87.891 Personal history of nicotine dependence

== ENCOUNTER 2020-09-27 13:13 | Inpatient (IN) | payer BC ==
[~2020-09-27] VITALS: Ht 177.8 cm; Wt 81.7 kg
[2020-09-27 13:16] VITALS: BP 173/92
[2020-09-27 13:48] LABS: ABSOLUTE NEUTROPHILS 2.8 thou/uL (1.4-8.2); BASOPHILS 0.8 % (0.0-2.0); HEMATOCRIT 41.4 % (42.0-52.0); HEMOGLOBIN 13.2 gm/dL (14.0-18.0); LYMPHOCYTES 36.1 % (24.0-44.0); MCH 28.5 pg (26.0-34.0); MCHC 31.8 g/dL (28.0-37.0); MCV 89.7 fL (80.0-100.0); MONOCYTES 6.7 % (1.0-8.0); PLATELET COUNT 297 thou/uL (150-400); POLYS 55.4 % (36.0-66.0); RBC 4.62 mil/uL (4.50-6.00); RDW 13.2 % (10.5-14.5); WBC 5.1 thou/uL (4.0-11.0)
[2020-09-27 13:54] LABS: ANION GAP 9 mmol/L (7-16); BUN 11 mg/dL (7-18); CALCIUM 9.9 mg/dL (8.5-10.1); CHLORIDE 106 mmol/L (98-107); CO2 28 mmol/L (21-32); GLUCOSE 131 mg/dL (74-106); POTASSIUM 4.1 mmol/L (3.5-5.1); SODIUM 143 mmol/L (136-145)
[2020-09-27 14:04] LABS: APTT 23.6 Seconds (24.5-32.8); PROTIME 10.7 Seconds (9.3-11.4)
[2020-09-27 14:06] LABS: ALBUMIN 3.9 g/dL (3.4-5.0); SGOT 25 U/L (15-37); SGPT 27 U/L (16-63); TOTAL BILIRUBIN 0.5 mg/dL (0.2-1.0); TOTAL PROTEIN 7.8 g/dL (6.4-8.2); TROPONIN-I <0.06 ng/mL (<0.06)
[2020-09-27 19:56] VITALS: BP 130/74
[2020-09-27 20:21] VITALS: BP 141/62
[2020-09-27 20:30] VITALS: BP 172/86
[2020-09-27 23:45] VITALS: BP 139/77
[2020-09-28 02:38] LABS: ABSOLUTE NEUTROPHILS 2.6 thou/uL (1.4-8.2); HEMATOCRIT 40.2 % (42.0-52.0); HEMOGLOBIN 12.8 gm/dL (14.0-18.0); LYMPHOCYTES 42.4 % (24.0-44.0); MCH 28.5 pg (26.0-34.0); MCHC 31.8 g/dL (28.0-37.0); MCV 89.9 fL (80.0-100.0); MONOCYTES 8.4 % (1.0-8.0); PLATELET COUNT 278 thou/uL (150-400); POLYS 46.2 % (36.0-66.0); RBC 4.47 mil/uL (4.50-6.00); RDW 13.2 % (10.5-14.5); WBC 5.6 thou/uL (4.0-11.0)
[2020-09-28 02:49] LABS: CALCIUM 9.4 mg/dL (8.5-10.1); MAGNESIUM 2.4 mg/dL (1.8-2.4); POTASSIUM 3.8 mmol/L (3.5-5.1)
[2020-09-28 02:57] LABS: CHOLESTEROL 129 mg/dL (<200); HDL CHOLESTEROL 52 mg/dL (>40); LDL CHOLESTEROL 65 mg/dL (<100); TC:HDL 2.5 Ratio (Not establshd); TRIGLYCERIDE 61 mg/dL (<150); VLDL 12 mg/dL (<40)
[2020-09-28 03:04] LABS: SERUM ASSESSMENT Clear
--- NOTE | 2020-09-28 03:50 | NUR ---
PT NEW ADMIT YESTERDAY WITH CVA SYMPTOMS. ALERT AND ORIENTED. VITALS STABLE, WITH INITIAL ELEVATED OTHERWISE STABLE THROUGH THE NIGHT. PT HAS RIGHT SIDED WEAKNESS, REPORTS MILD SORENESS, HYDROCODONE X 1 GIVEN. PT SCORES 5 & 4 RESPECTIVELY ON THE NIH SCORES. PASSES THE SWALLOWING STUDY, NO ANY SIGN OF ASPIRATION. ALL ASSESSMENTS DOCUMENTED. DENIES CHEST PAIN, SOB, NAUSEA OR VOMITING. CONSENT FORMS SIGNED. WILL CONTINUE TO MONITOR AND ASSESS NIH SCORES. WILL CONTINUE TO MONITOR.
[2020-09-28 08:00] VITALS: BP 131/87
--- NOTE | 2020-09-28 08:50 | EKG ---
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
[2020-09-28 12:11] VITALS: BP 138/87
--- NOTE | 2020-09-28 13:47 | HC ---
[facility] [place] [address] CONSULTATION Name: EMILIANO CHANG Room #: 217-P [facility] IN .R.#: [id number] Admission: 09/27/20 Attend Phys: Kathy Torres MD Discharge: Date of : 64 Report #: [id number] THIS REPORT FOR: cc: Elva Vidal K. Steven DO Khosla, Parveen K. MD ~ DATE OF SERVICE: 09/27/2020 HISTORY OF PRESENT ILLNESS: This is a 60-year-old male patient who was evaluated by me for the possibility of stroke. I was called by Emergency Room doctor because this patient had a generalized numbness in all 4 extremities and he was seen in the Emergency Room and was discharged. His symptoms continued to become worse and today he was pretty significantly weak in the right upper and right lower extremity. His face is not affected. He said he had a stroke in 2007 when he had similar symptoms on the left side, but they found something in his spine after the workup, so that history is unusual. He continued to become worse and he came to Emergency Room again today. REVIEW OF SYSTEMS: Indicate significant spine problem. He does have a history of hypertension. He thinks his blood pressure is reasonably controlled. He had MRIs in the past, but he told me they did not inject the dye, the best he remembers. His biggest complaint now is performed right-sided weakness that was his relevant 14-point review of system. PAST MEDICAL HISTORY: Positive for hypertension and high cholesterol. FAMILY HISTORY: Unremarkable. SOCIAL HISTORY: He says he does not smoke. He does drink alcohol weekly. PHYSICAL EXAMINATION: Indicate he is alert. He is responsive. He is able to follow simple command. His speech looks intact. In fact, his cranial nerve examination mostly looks unremarkable. I do not see any visual field deficit, but he is profoundly weak in his right upper and right lower extremity. His strength is only about 2/5. He can appreciate the pinprick and he can appreciate the position sense. His reflexes are somewhat hyper in all 4 extremities. There is no meningeal sign in this patient. His both plantars are mute. It is not possible to check the cerebellar sign on the right side because he has so little strength there. His cardiac and respiratory examinations appear unremarkable. I told the Emergency Room physician to get a stat MRI of the brain and C-spine done in this patient. I thought we will go ahead and do the C-spine also. The military pay technician called me and told me that she sees something in the C-spine. I reviewed the C-spine and brain. His brain does demonstrate a brainstem stroke [address] [address] CONSULTATION Name: EMILIANO CHANG Room #: 217-P [facility] IN M.R.#: [id number] Admission: 09/27/20 Attend Phys: Kathy Torres MD Discharge: Date of : 64 Report #: [id number] that will explain his right-sided weakness. MRI of the spine also shows some pathology in the spine. I do not know what it is. She wanted to see if I want to give him a contrast. His BUN and creatinine was normal. I told her to explain the patient the potential side effects of contrast including allergic reaction and irreversible dermatological reaction which can occur. If the patient is willing to take that risk, she can give the contrast. The patient was still on the table and if he did not do it today, we will not be able to do it until Thursday. She was going to go ahead and give this patient contrast after explaining the side effect of contrast and if the patient is willing to take that, especially because the patient told me that he never had a contrast, but I do not know how accurate his history is and there is no way for me to know. I am going to go ahead and give this patient Plavix. I will give him a loading dose. He told me he does not take any Plavix. I cannot find anywhere in the record which says that he is on Plavix, although in 2018 he had a stent put in and he was on Effient. I need to make sure that he is not on Effient anymore and if he is on Effient, then I will not give him any Plavix. In fact, I am reviewing his records and looks like the medication list on of this medication does indicate that he was on Effient and if he is becoming worse in spite of that, I am not sure what else can be done in this patient. The natural course of brainstem CVA is that they become worse. I will suggest putting him on DVT prophylaxis, Lovenox. I will see what the MRI of the C-spine shows and go from there. Thank you very much for this referral and if there is any question, please feel free to contact me. <ELECTRONICALLY SIGNED> By: Guanakito Sanders MD 09/28/20 1347 05 13 Guanakito Sanders MD /nt
[2020-09-28 15:26] VITALS: BP 127/98
[2020-09-28 19:24] VITALS: BP 142/92
--- NOTE | 2020-09-29 04:44 | NUR ---
CARE ASSUMED 1900. PT ALERT AND ORIENTED. VITALS STABLE. PT NIH SCORE OF 2. NOTED IMPROVEMENT WITH ROM IN THE RIGHT SIDE. REPORTS SOME TINGLING SENSATIONS AND PAIN, ALLEVIATED BY PRN PAIN MEDS. DENIES CHEST DISCOMFORT, SR ON THE MONITOR, NO NAUSEA VOMITING OR DIARRHEA. WILL CONTINUE WITH POC.
[2020-09-29 04:47] VITALS: BP 144/97
[2020-09-29 08:44] VITALS: BP 132/97
[2020-09-29 11:06] VITALS: BP 149/87
[2020-09-29 15:54] VITALS: BP 144/98
[2020-09-29 20:15] VITALS: BP 136/77
[2020-09-30 04:45] VITALS: BP 144/90
--- NOTE | 2020-09-30 05:23 | NUR ---
ASSESSMENTS CHARTED, MEDS CHARTED GIVEN. PATIENT RESTING IN BED DURING SHIFT. WORKING ON LIFTING BOTH HIS RIGHT ARM AND LEG AND MAKING A FIST AND MOVING HIS FOOT ON THE RIGHT SIDE. PATIENT STILL HAS DRIFT, BUT OTHERWISE NIH IS 0. PLAN OF CARE IS TO TRANSFER TO 5N ON THURSDAY IF HE CONTINUES TO BE STABLE. FALL PRECAUTIONS IN PLACE DURING SHIFT.
[2020-09-30 05:36] LABS: GLYCOHEMOGLOBIN (HGB A1C) 5.1 % (4.8-5.6)
--- NOTE | 2020-09-30 07:15 | 2DMMODE ---
[facility] [place] [address] 2 D/M-MODE ECHOCARDIOGRAM Name: EMILIANO CHANG IV Room #: 217-P ADM IN M.R.#: [id number] Admission: 09/27/20 Attend Phys: Kathy Torres MD Discharge: Date of : 64 Report #: [id number] THIS REPORT FOR: cc: Elva Vidal K. Steven DO Santiago, Patrick MD [facility] ~ APPROVED REPORT Study performed: 09/29/2020 12:16:04 EXAM: Comprehensive 2D, Doppler, and color-flow Echocardiogram Patient Location: Bedside Room #: 217 Status: on-call BSA: 1.98 HR: 55 bpm BP: 132/97 mmHg Rhythm: Bradycardia Other Information Study Quality: Adequate Risk Factors: Cardiac Risk Factors: HTN, Hyperlipidemia Indications CVA/TIA Dyspnea CAD Echo Enhancing Agent Indication: Rule out Shunt Agent(s) / Amount(s) Used: Agitated Saline 7 cc 2D Dimensions IVSd: 11.64 (7-11mm) LVOT Diam: 20.00 (18-24mm) LVDd: 48.25 mm PWd: 10.14 (7-11mm) Ascending Ao: 33.22 (22-36mm) LVDs: 35.25 (25-40mm) Aortic Root: 32.49 mm LV Single Plane 4CH: 48.20 % LV Single Plane 2CH: 48.93 % Biplane EF: 47.6 % [facility] [address] [place] [address] 2 D/M-MODE ECHOCARDIOGRAM Name: EMILIANO CHANG IV Room #: 217-P [facility] IN .R.#: [id number] Admission: 09/27/20 Attend Phys: Nneka Palomino Discharge: Date of : 64 Report #: [id number] Volumes Left Atrial Volume (Systole) Single Plane 4CH: 42.42 mL Single Plane 2CH: 28.32 mL LA ESV Index: 20.00 mL/m2 Aortic Valve AoV Peak Eric.: 1.31 m/s AO Peak Gr.: 6.84 mmHg LVOT Max P.50 mmHg LVOT Max V: 0.93 m/s KANDACE Vmax: 2.29 cm2 Mitral Valve E/A Ratio: 1.1 MV Decel. Time: 251.97 ms MV E Max Eric.: 0.83 m/s MV A Eric.: 0.75 m/s MV PHT: 73.07 ms IVRT: 78.43 ms TDI E/Lateral E': 10.38 E/Medial E': 11.86 Medial E' Eric.: 0.07 m/s Lateral E' Eric.: 0.08 m/s Pulmonary Valve PV Peak Eric.: 0.95 m/s PV Peak Gr.: 3.61 mmHg Pulmonary Vein P Vein S: 0.44 m/s P Vein A: 0.22 m/s P Vein D: 0.32 m/s P Vein A Dur.: 120.0 msec P Vein S/D Ratio: 1.38 Tricuspid Valve TR Peak Eric.: 2.18 m/s RAP Estimate: 7.00 mmHg TR Peak Gr.: 18.95 mmHg PA Pressure: 26.00 mmHg Left Ventricle The left ventricle is normal size. There is normal LV segmental wall motion. There is normal left ventricular wall thickness. Left ventricular systolic function is borderline. LVEF is 50%. Moderate diastolic dysfunction is present (pseudonormal filling). Right Ventricle The right ventricle is normal size. The right ventricular systolic function is normal. [facility] [address] [place] [address] 2 D/M-MODE ECHOCARDIOGRAM Name: EMILIANO CHANG Room #: [address] [place] [address] [place] [facility].#: [id number] Admission: 09/27/20 Attend Phys: Nneka Palomino Discharge: Date of : 64 Report #: [id number] Atria The left atrium size is normal. The right atrium size is normal. Aortic Valve The aortic valve is normal in structure. Trace to trace aortic regurgitation. There is no aortic valvular stenosis. Mitral Valve There is mitral annular calcification. Trace mitral regurgitation. No evidence of mitral valve stenosis. Tricuspid Valve The tricuspid valve is normal in structure. Trace tricuspid regurgitation. Pulmonary artery pressure is 26 mmHg. Pulmonic Valve The pulmonary valve is normal in structure. There is no pulmonic valvular regurgitation. Great Vessels The aortic root is normal in size. The ascending aorta is normal in size. IVC is normal in size and collapses >50% with inspiration. Pericardium There is no pericardial effusion. <Conclusion> Normal left ventricle size/wall thickness Ejection fraction 50% Normal right ventricle size/function Color-flow Doppler study of the aortic/mitral/tricuspid/pulmonary valve performed Tricuspid aortic valve Trace aortic valve insufficiency Mild mitral annular calcification Trace tricuspid valve insufficiency Pulmonary systolic pressure estimated at 24 mmHg No pericardial effusion <ELECTRONICALLY SIGNED> By: Spenser Noguera MD, FACC 09/30/20714 4 4 Spenser Noguera MD, FACC /INF
[2020-09-30 10:07] VITALS: BP 153/76
[2020-09-30 14:17] VITALS: BP 164/98
--- NOTE | 2020-09-30 17:51 | NUR ---
ASSUMMED PT CARE AT APPROXIMATELY 0700. PT A&O X4. ASSESSMENT CHARTED. FALL PRECAUTIONS IN PLACE. PT DENIES HAVING CHEST PAIN. PT DENIES HAVING SOB. PT DENIES HAVING ACUTE PAIN. EDUCATED PT ABOUT POC. PT STATED UNDERSTANDING AND DENIED HAVING FURTHER QUESTIONS. PT COMFORTABLE. PT AMBULATES STEADY X1 ASSIST C WALKER. VITAL SIGNS STABLE.
[2020-09-30 17:56] VITALS: BP 162/93
[2020-09-30 19:32] VITALS: BP 141/85
[2020-10-01 05:32] VITALS: BP 144/87
--- NOTE | 2020-10-01 08:14 | NUR ---
SLEPT MOST OF SHIFT. 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 ONLY RESIDAL FROM TIA IS SLIGHT DRIFT TO LEFT ARM AND LEFT LEG. WORKING ON GOALS AND PLAN OF CARE FOR NOC. PROGRESSING TOWARDS GOALS FOR TRANSFER TO 5N. CONTINUE TO ASSES.
[2020-10-01 08:30] VITALS: BP 152/85
[2020-10-01 09:07] LABS: ANA INTERPRETATION Negative (Negative)
--- NOTE | 2020-10-01 11:31 | NUR ---
Received awake on bed. Due medications given as prescribed, able to swallow meds w/o difficulty. On room air. Vital signs stable. On heart healthy diet- tolerating well; no nausea, no vomiting and no abdominal pain noted. On MS, not on telemetry; no complains and signs of chest pain, crushing sensation and heaviness. Continent of bowel and bladder. Assisted in ADLs, with R sided weakness. NO IV noted- physician aware. A/w 5N admission- as per , a/w insurance authorization. No complains of pain made during assessment. Pt seen and examined by Dr Gonsalves this am, pt expressed that he is claustrophobic and scared to go to 5N as he is scared of height as well- As per Dr Gonsalves, once pt is for transfer to rehab, night start him on lorazepam as well. To continue monitoring patient.
[2020-10-01 12:51] VITALS: BP 156/84
--- NOTE | 2020-10-01 14:05 | NUR ---
Met with patient who admits with right sided weakness. Patient reports he lives in second floor apt with malvin and 13 year old son. Patient reports approx 10 steps to second floor apt. He reports he had back sx in March and Jul of this year. He reports after JUL sx he was using cane but then at times did not need the cane. He was to begin therapy but then admitted to hosp. Patient has not worked since sx. 5n rehab evaled and seeking auth. Patient is agreeable to inpatient rehab.
[2020-10-01 17:00] VITALS: BP 166/93
[2020-10-01 18:06] LABS: SYPHILIS AB Non Reactive (Non Reactive)
[2020-10-01 20:15] VITALS: BP 157/94
[2020-10-02 00:25] VITALS: BP 149/80
[2020-10-02 05:32] VITALS: BP 126/70
--- NOTE | 2020-10-02 06:47 | NUR ---
PATIENT SEEN 10/01/20 FOR REHAB CONSULT BY MARÍA ELENA HARDWICK NP WITH DR. HOLT. PATIENT IS A CANDIDATE FOR ACUTE REHAB. AUTHORIZATION REQUESTED 10/01/20 FROM PATIENT'S INSURANCE FOR ACUTE REHAB ADMISSION. AWAITING RESPONSE. PATIENT WILL NEED NEGATIVE COVID TEST PRIOR TO ADMITTING TO . IT QUALITY ANALYST INFORMED OF ABOVE.
--- NOTE | 2020-10-02 07:19 | NUR ---
SLEPT MOST OF SHIFT. DANGLES ON SIDE OF BED TO VOID. 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 CONTINUE TO ASSES CLOSELY. PLANS FOR REHAB ONCE INSURANCE CLEARS.
[2020-10-02 08:00] VITALS: BP 133/81
[2020-10-02 15:38] VITALS: BP 152/92
[2020-10-02 19:59] VITALS: BP 143/88
--- NOTE | 2020-10-02 20:15 | NUR ---
ASSUMMED PT CARE AT APPROXIMATELY 0700. PT A&O X4. ASSESSMENT CHARTED. FALL PRECAUTIONS IN PLACE. PT DENIES HAVING CHEST PAIN. PT DENIES HAVING SOB. PT DENIES HAVING ACUTE PAIN. AWAITING APPROVAL FROM INSURANCE FOR PT TO GO TO 5N REHAB. PT COMFORTABLE. VITAL SIGNS STABLE. PT DENIES HAVING FURTHER CONCERNS. EDUCATED PT ABOUT POC. PT STATED UNDERSTANDING AND DENIED HAVING FURTHER CONCERNS.
--- NOTE | 2020-10-03 03:41 | NUR ---
A/O X 4.DENIES PAIN.REPORTS TINGLING ON HIS R ARM AND R LEG.POSSIBILITY OF GOING TO REHAB SOON.POC CONTINUED.
[2020-10-03 04:09] VITALS: BP 124/73
[2020-10-03 07:55] VITALS: BP 151/92
[2020-10-03 09:41] VITALS: BP 124/73
[2020-10-03] MEDS ORDERED: SYNTHROID25 MC1 PO (13:46)
[2020-10-03] MEDS ORDERED: CLOPIDOGREL75 MG PO (13:46)
--- NOTE | 2020-10-03 16:16 | NUR ---
PT CARE ASSUMED AT 0700. ASSESSMENTS CHARTED. MEDICATIONS CHARTED. NO IV PER . MED/SURG, NO TELEMETRY. PT IS SBA, UP TO TOILET. PT LIKES 0900 MEDICATION WITH BREAKFAST PER HOME REGIMEN.
== END 2020-10-03 15:25 | disposition home or self-care (01) | DRG 65 ==
LOC: ER 13:13 → 2N 17:41 → EROBS 17:41 → 2N 20:19
PROVIDERS: Emergency Medicine; Nurse Practitioner; Psychiatry & Neurology Neuromuscular Medicine; ADMIT Hospitalist; ATTEND Hospitalist
DX: I63.81 Other cerebral infarction due to occlusion or stenosis of small artery (principal); G95.89 Other specified diseases of spinal cord; K21.9 Gastro-esophageal reflux disease without esophagitis; I10 Essential (primary) hypertension; E78.00 Pure hypercholesterolemia, unspecified; E78.5 Hyperlipidemia, unspecified; F12.90 Cannabis use, unspecified, uncomplicated; Z20.828 Contact with and (suspected) exposure to other viral communicable diseases; Z95.5 Presence of coronary angioplasty implant and graft; I25.2 Old myocardial infarction; Z87.891 Personal history of nicotine dependence
CPT/HCPCS: 10081; 10194

== ENCOUNTER 2020-10-03 12:24 | Inpatient (IN) | payer BC ==
[~2020-10-03] VITALS: Ht 177.8 cm; Wt 90.2 kg
[2020-10-03] MEDS ORDERED: SYNTHROID25 MC1 PO (13:46)
[2020-10-03] MEDS ORDERED: CLOPIDOGREL75 MG PO (13:46)
--- NOTE | 2020-10-03 15:15 | NUR ---
1445 PATIENT ADMITTED TO ROOM 506. PATIENT IS ALERT AND ORIENTED X4. PATIENT HAS RIGHT HEMIPARESIS. LUNGS ARE CLEAR. ABD IS SOFT WITH BSX4. PATIENT VOIDS PER URINAL. PATIENT STATES "HE HAD BM THIS A.M. PATIENT IS AFRAID OF HEIGHTS. DR. CHAUHAN NOTIFIED. ATIVAN ORDERED FOR PATIENT AND GIVEN PER REQUEST. FALL AND SAFETY PROTOCOLS IN PLACE. DENIES PAIN AT THIS TIME. PT/OT/ST EVALS TO BE DONE IN A.M. CALL LIGHT IN REACH. WILL CONTINUE TO MONITER.
--- NOTE | 2020-10-03 15:36 | NUR ---
pt admitted to ARU with dx of acute cva, with right side weakness. pt stated he was "just about to start rehab," before hospitalizaton. pt had 2 back sx in 2019, one in 03/2020 and the other in 07/2020. pt is staying a fiance apt, after sx, "so my son can watch me," since he doing school remotely. pt states he plans to d/c back to his fiance apt that has 14 total stairs, 7, then a landing, then 7 add'l stairs. pt stated he hasnt been driving nor wrk'g since sx. pt is independent w/adls. pt has walker and cane. pt denies hx w/snf and he has used hh in the past, but doesnt recall, he thinks it was "religion." cm to cont to follow.
[2020-10-03 15:49] VITALS: BP 143/91
[2020-10-03 19:55] VITALS: BP 147/93
[2020-10-04 06:00] LABS: HEMATOCRIT 39.1 % (42.0-52.0); HEMOGLOBIN 12.4 gm/dL (14.0-18.0); MCH 28.4 pg (26.0-34.0); MCHC 31.8 g/dL (28.0-37.0); MCV 89.4 fL (80.0-100.0); RBC 4.38 mil/uL (4.50-6.00); RDW 13.1 % (10.5-14.5)
[2020-10-04 06:18] LABS: CALCIUM 9.5 mg/dL (8.5-10.1); CREATININE 0.9 mg/dL (0.7-1.3); POTASSIUM 3.9 mmol/L (3.5-5.1)
[2020-10-04 07:20] VITALS: BP 153/92
--- NOTE | 2020-10-04 11:22 | NUR ---
ASSUMED CARE AT 0700. PATIENT IS ALERT AND ORIENTED X4. PATIENT HAS RIGHT SIDED WEAKNESS. PATIENT IS VERY ANXIOIUS AND HAS FEAR OF HEIGHTS. PATIENT RECIEVED PRN FOR ANXIETY. LUNGS ARE CLEAR. ABD IS SOFT WITH BSX4. UP WITH ASSIST OF 1 STAFF AND GAIT BELT AND WALKER FOR TRANSFERS. UP ON SIDE OF BED FOR MEALS. FALL AND SAFETY PROTOCOLS IN PLACE. DENIES PAIN AT THIS TIME. CONTINUES TO PROGRESS SLOWLY TOWARDS D/C GOALS. WILL CONTINUE TO MONITER.
--- NOTE | 2020-10-04 12:09 | NUR ---
Patient states he plans to return to [facility] home upon discharge. Patient states he has his own walker and cane. Patient reports "[facility]" [facility] anticipate this as [facility]. Per attending d/c order have been put in the record.
[2020-10-04 20:16] VITALS: BP 129/75
--- NOTE | 2020-10-05 02:31 | NUR ---
RIGHT SIDE WEAK, ABLE TO EAT AND USE URINAL SITTING AT BEDSIDE, INFORMED THAT HE CAN LET US KNOW WHEN HE WANTS TO VOID, HE WOULD RATHER HAVE US TURN OFF BED ALARM, BUT THINKS HE CAN GET USED TO IT. HE STATE HIS FEAR OF HEIGHTS IS PERSISTENT ENOUGH THAT HE MAY NEED TO CONTINUE WITH ATIVAN Q 6 HOURS LONG HE IS ON THE 5TH FLOOR. PLEASANT.
[2020-10-05 07:43] VITALS: BP 123/71
--- NOTE | 2020-10-05 12:16 | NUR ---
ASSUMED CARE AT 0700. PT IS ALERT AND ORIENTATED. SLEPT FAIR, COMPLAINED OF BEING UNCOMFORTABLE IN THE BED AND HAS A CHRONIC LOWER BACK PAIN. LUNG CLEAR, HAD A BM YESTERDAY. PARTICIPATED WITH PT AND OT TODAY. UP WITH GAIT BELT AND WALKER WITH R SIDED WEAKNESS. APPETITE GOOD AND TOLERATES HIS MEDS WITH WATER WITHOUT ANY DIFFICULTY. CONT TO MONITOR.
[2020-10-05 20:00] VITALS: BP 141/90
--- NOTE | 2020-10-05 21:02 | NUR ---
ASSUMED CARE AT 1900. PATIENT IS ALERT AND ORIENTED X4. PATIENT HAS RIGHT SIDED WEAKNESS. PATIENT HAS HIGH ANXIETY R/T HEIGHTS. LUNGS ARE CLEAR. ABD IS SOFT WITH BSX4. PATIENT WAS MEDICATED WITH PRN FOR ANXIETY ANT 1900. PATIENT USES URINAL TO VOID MANDI COLORED URINE. FALL AND SAFETY PROTOCOLS IN PLACE. DENIES PAIN AT THIS TIME. CONTINUES TO PROGRESS TOWARDS D/C GOALS. PATIENT SITS ON SIDE OF BED TO EXERCISE HIS RIGHT LEG. WILL CONTINUE TO MONITER.
[2020-10-06 07:26] VITALS: BP 152/93
--- NOTE | 2020-10-06 10:32 | NUR ---
ASSUMED CARE AT 0700. PT IS ALERT AND ORIENTATED. SLEPT FAIRLY WELL. PAIN IS STABLE AND CONTROLLED. LUNGS CLEAR. APPETITE GOOD. HAD A BM TODAY. TOOK ALL HIS MEDS WITHOUT ANY DIFFICULTY WITH WATER. R SIDED WEAKNESS, BIOINFORMATICS SUPPORT SPECIALIST MODERATE, UP WITH ASSIST. PARTICIPATING IN THERAPY. WAS GIVEN LORAZEPAM AT 6AM. PT PREFERS HIS WINDOWN SHUT ALL THE TIME.
[2020-10-06 20:30] VITALS: BP 146/96
--- NOTE | 2020-10-07 00:42 | NUR ---
ASSUMED CARE OF PT AT 1915 ON 10/06/20. PT IS A&OX4. IS ON ROOM AIR. IS STABLE. IS UP WITH 1 ASSIST, GB, WALKER. FALL PRECAUTIONS & HOURLY CONTINUED THIS SHIFT. VITALS ASSESSED. LABS REVIEWED. PT REPORTS CHRONIC BACK PAIN THAT IS BEING MANAGED WITH PAIN MEDS & OTHER THERAPUETIC TECHNIQUES. HAS RIGHT SIDED WEAKNESS. PT IS CURRENTLY SLEEPING. CALL LIGHT WITHIN REACH. WILL CONTINUE TO MONITOR.
[2020-10-07 08:00] VITALS: BP 145/96
--- NOTE | 2020-10-07 10:24 | NUR ---
ASSUMED CARE AT 0700. PATIENT IS ALERT AND ORIENTED X4. PATIENT HAS RIGHT SIDED WEAKNESS. PATIENT LUNGS ARE CLEAR. ABD IS SOFT WITH BSX4. UP TO THE BATHROOM TO VOID AND HAVE BM. PATIENT UP ON SIDE OF BED FOR MEALS. FALL AND SAFETY PROTOCOLS IN PLACE. DENIES PAIN AT THIS TIME. CONTINUES TO PROGRESS TOWARDS D/C GOALS. WILL CONTINUE TO MONITER.
[2020-10-07 20:00] VITALS: BP 141/79
--- NOTE | 2020-10-08 00:21 | NUR ---
PT ALERT AND ORIENTED X 4. AMB WITH WALKER AND ASSIST X 1. RIGHT SIDED WEAKNESS NOTED. VOIDING CLEAR YELLOW URINE PER URINAL. PT DENIES PAIN OR DISCOMFORT. PT TAKING PRN ATIVAN FOR ANXIETY. MED GIVEN ORDERED. PT CHECKED ON HOURLY ROUNDS.
[2020-10-08 07:20] VITALS: BP 133/86
--- NOTE | 2020-10-08 09:26 | NUR ---
ASSUMED CARE AT 0700. PATIENT IS ALERT AND ORIENTED X4. PATIENT HAS RIGHT HEMIPARESIS. LUNGS ARE CLEAR. ABD IS SOFT WITH BSX4. PATIENT USES URINAL TO VOID MANDI COLORED URINE. UP ON SIDE OF THE BED FOR MEALS. FALL AND SAFETY PROTOCOLS IN PLACE. DENIES PAIN AT THIS TIME. PATIENT C/O ANXIETY R/T HEIGHTS. PATIENT GIVEN PRN MED FOR ANXIETY. PATIENT CONTINUES TO PROGRESS SLOWLY TOWARDS D/C GOALS. WILL CONTINUE TO MONITER.
--- NOTE | 2020-10-08 12:48 | HC ---
[facility] [place] [address] CONSULTATION Name: EMILIANO CHANG Room #: 506-1 ADM IN M.R.#: [id number] Admission: 10/03/20 Attend Phys: Camilo Jacobo MD Discharge: Date of : 64 Report #: [id number] THIS REPORT FOR: cc: Elva Vidal K. Steven DO Deutch,Jer Owens. PhD ~ DATE OF SERVICE: 10/06/2020 NEUROBEHAVIORAL STATUS EXAM ATTENDING PHYSICIAN: Camilo Jacobo MD WORLD GEOGRAPHY TEACHER: Jer Alves, PhD CLINICAL PRESENTATION: The patient is a 60-year-old -Malagasy male who was admitted to the rehabilitation unit for a comprehensive inpatient rehabilitation program following an acute lacunar infarction of the left inferior sunil. The patient has a history of lumbar radiculopathy with previous lumbar fusion in the summer and revision in 07/24/2020. His assessment on admission to the rehab unit is acute lacunar left CVA, right-sided weakness with the right upper extremity greater than the right lower extremity, myelomalacia of the spinal cord, cervical disk bulge, hypertension, coronary artery disease, status post cardiac stent, hyperlipidemia, status post lumbar fusion on 07/24/2020, chronic back pain and hypothyroidism. A complete description of his medical condition and history can be found in his medical record. Neuropsychological consultation was requested to provide assistance in the assessment of cognitive and emotional status and to provide recommendations and services. Prior to this most recent medical event, he was living independently with his fiancee and 1 son. The patient has 3 children, ages 36, 34 and 13. He reports having extensive medical history that includes a heart attack in 2018 and a previous CVA in 2008. 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 He completed the 10th grade. TECHNIQUES UTILIZED: Clinical interview, review of medical records, staff consultation and behavioral observation, mini mental status exam 2 standard version and brief verbal fluency assessment. EXAMINATION FINDINGS: The patient was alert and cooperative with the assessment. He accurately described events surrounding his admission. There is no evidence of aphasia. His thoughts are logical and goal oriented. There is no evidence of thought disorder. He does not report auditory or visual hallucinations. [facility] [address] [place] [address] CONSULTATION Name: EMILIANO CHANG Room #: 506-1 ADM IN M.R.#: [id number] Admission: 10/03/20 Attend Phys: Camilo Jacobo MD Discharge: Date of : 64 Report #: [id number] He describes his symptoms to include difficulty with sleep to the extent of being awakened from back pain, increased anxiety and variability in word finding. Longstanding issues associated with attention and concentration are reported. He indicates possibly having had an attention deficit disorder. He does not report difficulty with appetite or memory. He has a remote history of alcohol abuse. However, he has maintained sobriety for an extended time. Longstanding anxiety disorder is described in regard to a traumatic experience on a roller coaster in his youth. His performance on the MMSE 2 brief version was in the borderline range with a raw score of 12/16, T score of 31 and percentile rank of 3. He was 3/3 for initial registration, 4/5 for orientation to time, 4/[address] and 1/3 for immediate recall of 3 items after a brief time delay and distraction. His performance improved on the standard version of the MMSE 2 to a raw score of 26/30, which is within normal limits with a T score of 48, percentile rank of 42. The patient was 5/5 for serial sevens, although it was necessary for him to utilize his fingers when counting, suggesting difficulty with attention and concentration. Visual spatial construction was within normal limits. Performance on brief assessment of letter fluency was in the average range with a T score of 52. A brief category assessment was within normal limits with a T score of 50. The patient is presenting with variability in attention and concentration along with inconsistent immediate recall. 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 Unspecified anxiety disorder (fear of heights). Alcohol use disorder -- persistent abstinence. RECOMMENDATIONS: The patient may benefit from the use of psychological counseling to assist in overall adjustment, primarily focusing on relaxation techniques for managing anxiety. Breathing strategies can also be helpful for him in situation in which increased anxiety is occurring during therapies. The patient may benefit from an outpatient neuropsychological assessment to clarify cognitive functioning approximately 6 weeks after his stroke. [address] [address] CONSULTATION Name: EMILIANO CHANG Room #: 506-1 ADM IN M.R.#: [id number] Admission: 10/03/20 Attend Phys: Camilo Jacobo MD Discharge: Date of : 64 Report #: [id number] Variability in attention and concentration may be longstanding, but slightly worse at this time. Speech therapy will be helpful for cognitive stimulation and use of compensatory strategies. Thank you very much for allowing me to provide the consultation on this patient. <ELECTRONICALLY SIGNED> By: Jer Alves, PhD 10/08/20 1248 [id number] 10 Jer Alves, PhD /nt
[2020-10-08 19:50] VITALS: BP 143/86
--- NOTE | 2020-10-09 01:18 | NUR ---
PT ALERT AND ORIENTED X 4. UP IN RECLINER AT START OF SHIFT. TRANSFERRED TO BED AT HS WITH ASSIST X 1. RIGHT SIDED WEAKNESS NOTED. PT C/O BACK PAIN. HYDROCODONE GIVEN AT HS. ATIVAN ALSO GIVEN PER PT REQUEST FOR ANXIETY. PT APPEARS TO BE SLEEPING ON HOURLY ROUNDS.
[2020-10-09 08:05] VITALS: BP 152/94
--- NOTE | 2020-10-09 12:52 | NUR ---
PT ALERT AND ORIENTED TIMES FOUR. VSS. PT DENIES PAIN/SOA. PT TOLERATES MEDS AND MEALS. WORKED WELL WITH PT/OT. PT PROGRESING TOWARD POC GOALS.
--- NOTE | 2020-10-09 12:58 | NUR ---
team conference: pt admitted to rehab w/ cva rt weakness dx. pt is gait is 200+ ft w/fww walker w/min assist. pt did 12 steps w/ min assist. pt needs reinforcement to eat and drink w/right hand. pt has mild to mod deficit w/cognition and mild deficit w/general info or short term memory. mod deficit w/new trainings. dc plan: target date 10/23, possibly w/outpatient therapy.
[2020-10-09 19:30] VITALS: BP 140/79
--- NOTE | 2020-10-10 00:21 | NUR ---
RIGHT HAND WEAKNESS. SAFELY SITTING AT EDGE OF BED TO USE URINAL FOR 200 CC AT A TIME. BACK PAIN MINIMAL AT THIS TIME. APPRECIATES ATIVAN AT HS TO MINIMIZE HIS FEAR OF HEIGHTS.
[2020-10-10 08:00] VITALS: BP 145/98
--- NOTE | 2020-10-10 13:58 | NUR ---
ASSUMED CARE AT 0700. PT SLEPT FAIRLY WELL. COMPLAINED OF BACK PAIN AND PREFERS TO GET THERAPY AFTER HIS MORNING MEDS GIVEN AND SPOKE TO THERAPY FOR TIME CHANGE. HE REMEMBERS TO CALL FOR HIS MORNING MEDS TODAY. APPETITE GOOD. PARTICIPATING IN THERAPY. REQUESTED FOR ATIVAN AT NOON. LUNGS CLEAR, BOWEL SOUNDS PRESENT. UP WITH MIN ASSIST USING THE WALKER. DIURESING ADEQUATELY. CONT TO MONITOR.
[2020-10-10 19:35] VITALS: BP 148/100
--- NOTE | 2020-10-11 03:29 | NUR ---
10-10-19 CARE TRANSFERRED 1914. PT AAOX3, VSS, RR EVEN AND NONLABORED ON RA. PT HAS LEFT SIDE WEAKNESS BUT NOTED PT HAD NO DIFFICULTIES MOVING TO SIDE OF BED. PT REPORTS FEELING ANXIOUS AND REQUESTS PRN MEDICATION, ANXIETY MANAGED WITH PRN. ZERO S/S OF ACUTE DISTRESS NOTED, PT WILL CONTINUE TO BE MONITOR PER PROTOCOL.
[2020-10-11 05:20] LABS: ABSOLUTE NEUTROPHILS 1.8 thou/uL (1.4-8.2); BASOPHILS 0.9 % (0.0-2.0); EOSINOPHILS 3.1 % (0.0-3.0); HEMATOCRIT 39.7 % (42.0-52.0); HEMOGLOBIN 12.7 gm/dL (14.0-18.0); LYMPHOCYTES 49.6 % (24.0-44.0); MCH 28.6 pg (26.0-34.0); MCHC 32.1 g/dL (28.0-37.0); MCV 89.3 fL (80.0-100.0); MONOCYTES 7.3 % (1.0-8.0); PLATELET COUNT 280 thou/uL (150-400); POLYS 39.1 % (36.0-66.0); RBC 4.44 mil/uL (4.50-6.00); RDW 12.9 % (10.5-14.5); WBC 4.7 thou/uL (4.0-11.0)
[2020-10-11 05:44] LABS: CALCIUM 9.6 mg/dL (8.5-10.1); CREATININE 0.9 mg/dL (0.7-1.3); MAGNESIUM 2.1 mg/dL (1.8-2.4)
[2020-10-11 08:00] VITALS: BP 154/97
--- NOTE | 2020-10-11 12:05 | NUR ---
Pt seen for LOS. Pt with good appetite, tolerating diet, and consuming 100% of most meals offered. No new wt for assessment. Skin remains intact with no pressure ulcers noted. Pt remains low nutritional risk.
--- NOTE | 2020-10-11 14:27 | NUR ---
CM FAXED REFERRAL TO [facility] [phone].
--- NOTE | 2020-10-11 14:28 | NUR ---
ASSUMED CARE AT 0700. PT IS ALERT AND ORIENTATED. DID NOT SLEEP TOO WELL LAST NIGHT DUE TO ONGOING BACK PAIN. PAIN IS MANAGEABLE WITH NORCO. PT ALSO COMPLAINED OF HARD STOOL LAST NIGHT. NEEDS ADDRESSED TO PROVIDER. ORDERS RECEIVED FOR LIDOCAINE PATCH, STOOL REGIMEN AND SLEEP AID. PARTICIPATING IN SYLVIA THERAPIES. HEATING PAD TO LOWER BACK SEEMS TO HELP SOME. CONT TO MONITOR.
[2020-10-11 19:42] VITALS: BP 141/85
--- NOTE | 2020-10-12 00:15 | NUR ---
PT ALERT AND ORIENTED X 4. RIGHT SIDED WEAKNESS NOTED. PT DENIES PAIN OR DISCOMFORT. PT APPEARS TO BE SLEEPING ON HOURLY ROUNDS.
[2020-10-12 08:00] VITALS: BP 159/96
--- NOTE | 2020-10-12 11:28 | NUR ---
SAVANA spoke with Jerome at [facility] regarding referral sent for outpatient therapy when pt is discharged. Jerome states that pt is a good candidate for their program. Anticipated discharge date of 10/23 planned. Jerome to contact pt's s/o, Selene, to provide info regarding their program/services. Jerome to bring information to the hospital on Thursday to provide to pt. SAVANA is following to assist as needed with discharge planning.
--- NOTE | 2020-10-12 16:39 | NUR ---
FAXED ST NOTES TO [facility] RECEIVED CONFIRMATION WILL F/U WITH THEM ON THURSDAY.
--- NOTE | 2020-10-12 18:01 | NUR ---
INITALLY DENIES PAIN DURING AM ASSESSMENT BUT IS NOTED TO HAVE SOME FACIAL GRIMACING WITH POSITION CHANGES AND NOTED TO RUBBING LOW BACK-DID STATE HAD SOME PAIN RATED A 5 ON 1-10 SCALE-EDUCATED REGARDING IMPORTANCE OF NOT ALLOWING PAIN TO GET SEVERE BEFORE NOTIFYING NURSE HARDER TO MANAGE-DID TAKE NORCO 5/325 MG GIVEN PO PRN AT 0915 PRIOR TO GOING TO THERAPY-DID REPORT GOOD RELIEF AT APPROX 1030 UPON RETURNINF TO UNIT-STATING NO PAIN AT ALL. LUNGS CLEAR-APPETITE GOOD-AMBULATES WITH USE OF CANE OR ROLLER WALKER AND REQUIRES SBA ONLY-REPORTS FEELING FRUSTRATED RE NOT BEING ALLOWED TO WALK TO DOOR IN ROOM WITHOUT SUPERVISION"I DON'T SEE WHY NOT IT WILL HELP ME GET STRONGER" REEDUCATED REGARDING WAYS TO PREVENT FALLS AND TAKE TIME TO GET STRONGER-RECEPTIVE TO FEEDBACK OFFERED.
[2020-10-12 20:00] VITALS: BP 173/111
[2020-10-12 23:00] VITALS: BP 122/70
--- NOTE | 2020-10-13 02:53 | NUR ---
ASSUMED CARE APPROX 1900 EVENING 10/12. PT ALERT AND ORIENTED X4, APPROPRIATE AND COOPERATIVE. PT UP INDEPENDENTLY TO VOID IN URINAL. PT WITH HTN AT HS AND ORDER RECD FOR CLONIDINE. BP IMPROVED AFTER DOSE 120/70 AND PT HAS BEEN SLEEPING WELL. CALL LIGHT IN REACH. WILL CONTINUE TO MONITOR.
[2020-10-13 07:20] VITALS: BP 154/92
--- NOTE | 2020-10-13 11:16 | NUR ---
ASSUMED CARE AT 0700. PT IS ALERT AND ORIENTATED. DID NOT SLEEP TOO WELL DESPITE GIVEN MELATONIN AND ATIVAN. HE REPORTED THE BED WAS NOT COMFORTABLE. DENIES ANY PAIN OR ANXIETY AT THIS MOMENT. APPETITE GOOD. HAD A BM TODAY. PARTICIPATING IN THERAPY. CONT TO MONITOR.
[2020-10-13 18:22] LABS: HEMATOCRIT 39.4 % (42.0-52.0); HEMOGLOBIN 12.7 gm/dL (14.0-18.0); MCH 28.9 pg (26.0-34.0); MCHC 32.3 g/dL (28.0-37.0); MCV 89.4 fL (80.0-100.0); RBC 4.41 mil/uL (4.50-6.00); RDW 13.3 % (10.5-14.5)
[2020-10-13 18:34] LABS: ANION GAP 6 mmol/L (7-16); BUN 14 mg/dL (7-18); CALCIUM 9.8 mg/dL (8.5-10.1); CHLORIDE 102 mmol/L (98-107); CO2 29 mmol/L (21-32); GLUCOSE 104 mg/dL (74-106); POTASSIUM 4.2 mmol/L (3.5-5.1); SODIUM 137 mmol/L (136-145); TROPONIN-I <0.06 ng/mL (<0.06)
[2020-10-13 19:27] VITALS: BP 140/80
--- NOTE | 2020-10-14 03:01 | NUR ---
pt alert and oriented x4, appropriate and cooperative. pt given [place] for headache pain and pt has been sleeping since. pt voidiing per urinal. bed alarm on and call light in reach. will continue to monitor.
[2020-10-14 05:22] LABS: HEMATOCRIT 36.9 % (42.0-52.0); HEMOGLOBIN 11.6 gm/dL (14.0-18.0); MCH 28.2 pg (26.0-34.0); MCHC 31.5 g/dL (28.0-37.0); MCV 89.6 fL (80.0-100.0); RBC 4.12 mil/uL (4.50-6.00); RDW 13.1 % (10.5-14.5)
[2020-10-14 05:40] LABS: CALCIUM 9.5 mg/dL (8.5-10.1); MAGNESIUM 2.1 mg/dL (1.8-2.4); POTASSIUM 4.2 mmol/L (3.5-5.1)
[2020-10-14 07:37] VITALS: BP 141/87
--- NOTE | 2020-10-14 12:59 | NUR ---
PT ALERT AND ORIENTED TIMES FOUR. VSS. PT C/O HEADACHE PRN PAIN MEDICATIONS GIVEN WITH GOOD RELEIF. PT TOLERATES MEDS AND MEALS. PT WORKED WELL WITH PHYSICAL THERAPY TODAY WALKING AROUND THE UNIT. PT PROGRESSING TOWRADS POC GOALS.
[2020-10-14 17:09] VITALS: BP 165/94
[2020-10-14 18:34] VITALS: BP 132/95
[2020-10-14 19:54] VITALS: BP 159/100
[2020-10-14 22:30] VITALS: BP 148/82
--- NOTE | 2020-10-14 23:08 | NUR ---
PT ASSESSMENT COMPLETED AND VSS. MEDS GIVEN ORDERED AND WELL TOLERATED. PT WORKING REALLY HARD ON GETTING HIS R SIDE STRENGTH BACK. PT DOING HIS PT EXERCISES. BP ELEVATED EARLY DURING SHIFT. RECHECKED AT 2230 AND BP 148/82. MUCH IMPROVED. PT UP WATCHING TV. VERY PLEASANT. WILL CONTINUE TO MONITOR FREQUENTLY. VOIDING MODERATE AMOUNT OF YELLOW URINE PER URINAL.
[2020-10-15 07:20] VITALS: BP 143/81
--- NOTE | 2020-10-15 07:37 | EKG ---
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 : [id number] Requested By: Lisandro Flores Order Number: [id number] MD: Solo Flood Measurements Intervals [place] Rate: 63 P: 20 NC: 131 QRS: 36 QRSD: 92 T: 43 QT: 430 QTc: 441 Interpretive Statements Sinus rhythm Minimal, diffuse ST segment elevation Compared to ECG 09/27/2020 14:03:37 No significant change was found Electronically Signed On 10-15-2020 7:37:42 CONTROL PANEL OPERATOR CRUDE UNIT by Solo Flood [email or web address] <ELECTRONICALLY SIGNED> By: Solo Flood MD, [facility] 10/15/20 0737 1 Solo Flood MD, FACC /EPI
--- NOTE | 2020-10-15 12:56 | NUR ---
ASSUMED CARE AT 0700. PATIENT IS ALERT AND ORIENTED X4. PATIENT HAS RIGHT SIDED WEAKNESS. PATIENT CASTILLO'S, POST SECONDARY PROFESSIONAL ARE STRONGER ON THE LEFT. LUNGS ARE CLEAR. ABD IS SOFT WITH BSX4. PATIENT IS MOD/I IN ROOM WITH WALKER. UP IN THE W/C FOR MEALS. FALL AND SAFETY PROTOCOLS IN PLACE. DENIES BACK PAIN AT THIS TIME. LIDOCAINE PATCHES APPLIED TO HIS LOWER BACK FOR 12 HOURS. CONTINUES TO PROGRESS SLOWLY TOWARDS D/C GOALS. WILL CONTINUE TO MONITER.
--- NOTE | 2020-10-15 13:56 | NUR ---
SAVANA reviewed chart. Pt's discharge home is anticipated on Thursday, 10/23. Jerome with [facility] has spoken with pt's s/o regarding plan for outpatient therapy upon discharge. SAVANA is following to assist as needed with discharge planning.
[2020-10-15 19:40] VITALS: BP 156/99
--- NOTE | 2020-10-15 23:12 | NUR ---
ASSUMED CARE OF PT AT 1915. PT IS A&OX4. IS ON ROOM AIR. DAVID BACK PAIN AT THIS TIME. IS STABLE. IS ON ROOM AIR. IS UP MOD I IN ROOM. RIGHT SIDED WEAKNESS CONTINUED. LABS & VITALS REVIEWED. HOURLY ROUNDING CONTINUED THIS SHIFT. PT IS CURRENTLY SLEEPING. CALL LIGHT WITHIN REACH. WILL CONTINUE TO MONITOR.
[2020-10-16 07:20] VITALS: BP 145/92
--- NOTE | 2020-10-16 11:01 | NUR ---
ASSUMED CARE AT 0700. PATIENT IS ALERT AND ORIENTED X4. PATIENT HAS RIGHT SIDED WEAKNESS THAT IS IMPROVING. PATIENT LUNGS ARE CLEAR. PATIENT IS UP IN CHAIR FOR MEALS. ABD IS SOFT WITH BSX4. PATIENT IS MOD/I IN ROOM WITH WALKER. FALL AND SAFETY PROTOCOLS IN PLACE. C/O BACK PAIN. MEDICATED WITH PRN PAIN MED AND LIDOCAINE PATCHES. CONTINUES TO PROGRESS TOWARDS D/C GOALS. WILL CONTINUE TO MONITER.
--- NOTE | 2020-10-16 13:31 | NUR ---
team conference: pt admitted to [facility] with dx of cva rt weakness. pt c/o headache, bp issues. pt transfer [id number], pt gait is contact guard fww. pt has mild cognitive deficit and mild to moderate memory deficit. pt declines ability elio. outpatient orders vs. [facility]. pt target d/c date is , 10/18/20.
--- NOTE | 2020-10-16 14:29 | NUR ---
FAXED REFERRAL TO [facility] SPOKE WITH DAVIDA IN INTAKE THEY ARE AT [facility] AND WILL NOT BE ABLE TO ACCEPT. FAXED REFERRAL TO [facility] RECEIVED CONFIRMATION THEY WILL REVIEW.
--- NOTE | 2020-10-16 16:12 | NUR ---
1222 PATIENT C/O GALARZA. BP 150/92. PATIENT REQUESTED PRN PAIN MED. MEDICATED WITH PRN PAINMED AND PATIENT WALKED OVER TO HIS BED TO LIE DOWN AND REST. WILL CONTINUE TO MONITER.
--- NOTE | 2020-10-16 16:14 | NUR ---
1523 PATIENT C/O HIS GALARZA DID NOT GO AWAY. BP RECHECKED. BP 180/103. ANGIE NICHOLAS NP NOTIFIED. BEER MAKER HERE TO SEE PATIENT. PLAN IS TO ADD HYDRALAZINE PO FOR BP>170. PATIENT WAS MEDICATED WITH THE PRN HYDRALAZINE. PATIENT IS VERY ANXIOUS AT THIS TIME. PATIENT MEDICATED WITH PRN ANTI-ANXIETY MEDICATION. WILL RE-CHECK BP IN 1 HR AND CONTINUE TO MONITER.
[2020-10-16 19:45] VITALS: BP 124/79
--- NOTE | 2020-10-17 02:51 | NUR ---
pt modified indep in room tolerating well. pt has been sleeping, denied complaints. voiding per urinal. call light in reach. will continue to monitor.
[2020-10-17 07:08] VITALS: BP 144/96
[2020-10-17 08:00] VITALS: BP 139/86
--- NOTE | 2020-10-17 11:00 | NUR ---
ASSUMED CARE AT 0700. SLEPT FAIRLY WELL. COMPLAINED OF DIZZY AND GALARZA. BP WAS 165/99. AM MEDS GIVEN AT 0800. PT REPORTED HEAD ACHES IN THE FRONTAL SIDE AND RADIATES TO HIS L ORBIT. SOME BLURRY VISION. DENIES ANY NAUSEA. CONCERNS ABOUT THERAPY TODAY DUE TO ELEVATED BP. PRN HYDRALAZINE GIVEN, OK PER [employer] SYSTEM OPERATION SUPERINTENDENT TO CONT WITH PHY THERAPY. PT REASSESSED AND STILL COMPLAINED OF GALARZA BUT IS MANAGEABLE. PO ATIVAN AND TYLENOL GIVEN. BP RECHECKED 148/82. DR APONTE WITH [facility] CONSULTED AND MESSAGE LEFT WITH ANSWERING SERVICE TO SEE PT TODAY DUE TO BEING DC HOME TOMORROW.
--- NOTE | 2020-10-17 15:29 | H ---
[facility] [place] [address] HISTORY AND PHYSICAL Name: EMILIANO CHANG Room #: 506-1 ADM IN M.R.#: [id number] Admission: 10/03/20 Attend Phys: Camilo Jacobo MD Discharge: Date of : 64 Report #: [id number] THIS REPORT FOR: cc: Elva Vidal K. Steven DO Smithson, David G. MD ~ DATE OF SERVICE: 10/03/2020 HISTORY AND PHYSICAL ADDENDUM HISTORY OF PRESENT ILLNESS: The patient was originally admitted on 09/27/[facility] to [facility] with right-sided weakness. Workup included an MRI scan revealing a 1 cm acute lacunar infarct in the left inferior sunil. Neurology has been involved. He has premorbid left hand numbness, which is related back to his cervical spine and he notes that he warrants another cervical spine surgery at a later date. He had a prior C-spine surgery many years ago. With the acute stroke and right-sided weakness, he has had a functional decline and has now been admitted for acute in-hospital inpatient rehabilitation. Agree with the documentation as noted. Please see the prior medical history, social history, prior habits. MEDICATIONS: See the MAR. ALLERGIES: No known drug allergies. REVIEW OF SYSTEMS: No chest pain, shortness of breath, abdominal discomfort. Please see the full review of systems as documented. FAMILY HISTORY: Noncontributory. PHYSICAL EXAMINATION: GENERAL: He is a pleasant 60-year-old -Taj[place] male, in no obvious distress. The patient is alert. He follows basic 1 step commands without difficulty. VITAL SIGNS: Last recorded temperature 97.9, pulse 78, respirations 20, blood pressure 153/92. HEENT: Appeared to be benign. Facies appeared symmetric. Mucous membranes are moist. NECK: He has old cervical spine surgery with incisional site well healed. CHEST: Sounded clear to auscultation. CARDIAC: Regular rate and rhythm. ABDOMEN: Bowel sounds positive, nontender. GENITOURINARY AND RECTAL: Deferred. NEUROMUSCULOSKELETAL: He has functional range of motion of both upper extremities and lower extremities. He does have some right-sided weakness, [facility] [address] [place] [address] HISTORY AND PHYSICAL Name: EMILIANO CHANG Room #: 506-1 ADM IN M.R.#: [id number] Admission: 10/03/20 Attend Phys: Camilo Jacobo MD Discharge: Date of : 64 Report #: [id number] would grade it at a 4-/5. Some decreased coordination is noted. He is min assist needed for basic sit to stand transfers, min assist ambulate short distance with a front-wheeled walker. He appears to have some ataxic movements with his right upper extremity, but this can improve with increased usage. He is on a regular diet with thin liquids. ASSESSMENT: 1. Left lacunar infarct inferior sunil. 2. Right-sided hemiparesis. 3. Dysarthria. Appears to be improving. 4. Hypertension. 5. Coronary artery disease, status post cardiac stent. 6. Hyperlipidemia. 7. Prior history of some left upper extremity numbness, which he relates to his cervical spine condition. 8. Prior cervical spine surgery with history of warranting further cervical spine surgery in the future. 9. Status post recent lumbar fusion. 10. Hyperlipidemia. 11. History of marijuana usage. PLAN: The patient has been admitted for acute in-hospital inpatient rehabilitation. Agree with the documentation as noted. He will be involved in the interdisciplinary acute inpatient rehabilitation program with the goal of maximizing his functional independence, so he can hopefully return back to his prior living situation. We will be glad to follow along with you regarding his rehab therapy needs. Prognosis is reasonably good with estimated length of stay probably 10-14 days. He meets diagnostic criteria for an acute in-hospital inpatient rehabilitation stay. He meets the medical necessity criteria and we will have the risk control consultant physicians continue to follow. He does have the tolerance for therapies and has appropriate discharge goals back to the home setting. <ELECTRONICALLY SIGNED> By: Camilo Jacobo MD 10/17/20 1529 [id number] Camilo Jacobo MD /[facility]
--- NOTE | 2020-10-17 15:29 | PLAN ---
[facility] [place] [address] REHAB UNIT PLAN OF CARE Name: EMILIANO CHANG Room #: 506-1 ADM IN M.R.#: [id number] Admission: 10/03/20 Attend Phys: Camilo Jacobo MD Discharge: Date of : 64 Report #: [id number] THIS REPORT FOR: cc: Elva Vidal K. Steven DO Smithson, David G. MD ~ DATE OF SERVICE: 10/06/2020 PROGRESS NOTE/OVERALL PLAN OF CARE SUBJECTIVE: The patient was seen back earlier. Temperature 36.5, pulse 70, respirations 20, blood pressure 152/93. He has been alert. Pain controlled. He has a good appetite. He has been cooperative as far as working in therapies, taking his medication. He has the right-sided weakness with transfers currently, min assist. He is ambulating 200 feet min assist with a front-wheeled walker. He is needing mod assist to try to go up and down steps. Lower body dressing is mod assist with upper body min assist. Speech therapy, he is noted to be on a regular diet with thin liquids. He is being seen by Speech for cognitive issues with moderate memory deficits and has [id number] cognitive deficits. ASSESSMENT: 1. Lacunar left cerebrovascular accident. 2. Right-sided weakness, upper extremity greater than lower extremity. 3. Myelomalacia of the spinal cord. 4. Cervical disk bulge. 5. Hypertension. 6. Coronary artery disease, status post cardiac stent. 7. Hyperlipidemia. 8. Status post lumbar fusion. PLAN: The overall plan of care is based on the preadmission screen and information garnered from therapy assessments. 1. Estimated length of stay is probably going to be around 10 days to 14 days. 2. Medical prognosis is reasonably good. 3. Anticipated interventions include the interdisciplinary acute inpatient rehabilitation program. 4. Anticipated functional outcomes would be for the patient to return back to the home setting. 5. Discharge destination would be back to the second floor apartment with his fiancee and 13-year-old child. 6. Expected therapy by discipline includes PT, OT and speech 1 hour per day each five days a week throughout the duration of the acute inpatient rehabilitation stay. [facility] [address] [place] [address] REHAB UNIT PLAN OF CARE Name: EMILIANO CHANG Room #: 506-1 ADM IN ..#: [id number] Admission: 10/03/20 Attend Phys: Camilo Jacobo MD Discharge: Date of : 64 Report #: [id number] ADDENDUM: The patient's prognosis for significant practical improvement within a reasonable period of time appears good. Given the patient's complex medical condition and risk of further medical complications, rehabilitation services could not be safely provided at a lower level of care such as a senior care facility. <ELECTRONICALLY SIGNED> By: Camilo Jacobo MD 10/17/20 1529 1206 1253 Camilo Jacobo MD /[facility]
[2020-10-17 19:24] VITALS: BP 136/86
--- NOTE | 2020-10-18 00:20 | NUR ---
PT ALERT AND ORIENTED X 4. MODIFIED INDEPENDENT IN ROOM WITH WALKER. RIGHT SIDED WEAKNESS NOTED. BP 136/86 THIS EVENING. PT REPORTS SLIGHT HEADACHE. NO C/O DIZZINESS. BED ALARM ON FOR SAFETY. PT APPEARS TO BE SLEEPING ON HOURLY ROUNDS.
[2020-10-18 08:00] VITALS: BP 140/92
--- NOTE | 2020-10-18 08:11 | NUR ---
lili thomson at [facility] in [place]. faxed order to [phone].
[2020-10-18 08:33] VITALS: BP 136/86
[2020-10-18] MEDS ORDERED: LISINOPRIL40 MG PO (09:18)
[2020-10-18] MEDS ORDERED: VITAMIN D325 MC1 PO (09:18)
[2020-10-18] MEDS ORDERED: COLACE100 MG PO (09:18)
[2020-10-18] MEDS ORDERED: CLOPIDOGREL75 MG PO (09:18)
[2020-10-18] MEDS ORDERED: AMLODIPINE BESY10 MG PO (09:18)
[2020-10-18] MEDS ORDERED: HYDRALAZINE 10M10 MG PO (09:18)
[2020-10-18] MEDS ORDERED: SYNTHROID25 MC1 PO (09:28)
--- NOTE | 2020-10-18 10:13 | NUR ---
ASSUMED CARE AT 0700. ALERT AND ORIENTATED. DENIES ANY PAIN FOR NOW. STILL HAS SLIGHT HEADACHE BUT IS TOLERABLE. CT SCAN HEAD WAS NEG THIS MORNING. BP WAS WNL. PT ANXIOUS TO GO HOME SOON POSSIBLE. REFUSED LIDOCAINE PATCH TODAY. JAIR BERMAN AWARE. APPETITE GOOD, HAD A BM TODAY. DC SUMMARY DONE. DC INSTRUCTIONS EDUCATED TO PT. SON WILL COME AT 1100.
[2020-10-18 10:21] VITALS: BP 140/92
== END 2020-10-18 11:00 | disposition home or self-care (01) | DRG 56 ==
PROVIDERS: Internal Medicine; Nurse Practitioner; Nurse Practitioner Family; ADMIT Physical Medicine & Rehabilitation; ATTEND Physical Medicine & Rehabilitation
DX: I69.351 Hemiplegia and hemiparesis following cerebral infarction affecting right dominant side (principal); I63.81 Other cerebral infarction due to occlusion or stenosis of small artery; G95.89 Other specified diseases of spinal cord; M50.20 Other cervical disc displacement, unspecified cervical region; I10 Essential (primary) hypertension; I25.10 Atherosclerotic heart disease of native coronary artery without angina pectoris; G31.84 Mild cognitive impairment of uncertain or unknown etiology; E78.5 Hyperlipidemia, unspecified; F41.9 Anxiety disorder, unspecified; R47.1 Dysarthria and anarthria; G89.29 Other chronic pain; M54.9 Dorsalgia, unspecified; Z20.822 Contact with and (suspected) exposure to COVID-19; I99.9 Unspecified disorder of circulatory system; E78.00 Pure hypercholesterolemia, unspecified; E03.9 Hypothyroidism, unspecified; F12.90 Cannabis use, unspecified, uncomplicated; Z95.5 Presence of coronary angioplasty implant and graft; I25.2 Old myocardial infarction; Z87.891 Personal history of nicotine dependence; Z98.1 Arthrodesis status; Z28.21 Immunization not carried out because of patient refusal
CPT/HCPCS: 10112

== ENCOUNTER 2021-11-30 13:35 | Inpatient (IN) | payer OTHER ==
[~2021-11-30] VITALS: Ht 177.8 cm; Wt 78.5 kg
[~2021-11-30 13:35] MED LIST changes: +AMLODIPINE BESY10 MG PO; +CLOPIDOGREL75 MG PO; +COLACE100 MG PO; +HYDRALAZINE 10M10 MG PO; +LISINOPRIL40 MG PO; +SYNTHROID25 MC1 PO; +VITAMIN D325 MC1 PO
[2021-11-30 13:41] VITALS: BP 181/96
[2021-11-30 14:11] LABS: ABSOLUTE NEUTROPHILS 4.7 thou/uL (1.4-8.2); BASOPHILS 0.8 % (0.0-2.0); EOSINOPHILS 1.1 % (0.0-3.0); HEMATOCRIT 39.5 % (42.0-52.0); LYMPHOCYTES 23.4 % (24.0-44.0); MCH 28.7 pg (26.0-34.0); MCHC 32.9 g/dL (28.0-37.0); MCV 87.2 fL (80.0-100.0); MONOCYTES 5.8 % (1.0-8.0); PLATELET COUNT 245 thou/uL (150-400); POLYS 68.9 % (36.0-66.0); RBC 4.53 mil/uL (4.50-6.00); RDW 13.2 % (10.5-14.5); WBC 6.7 thou/uL (4.0-11.0)
[2021-11-30 14:19] LABS: CALCIUM 9.6 mg/dL (8.5-10.1)
[2021-11-30 16:24] VITALS: BP 123/74
[2021-11-30 16:40] VITALS: BP 139/85
--- NOTE | 2021-11-30 17:48 | NUR ---
Received pt in to room 213 from ER. Pt admitted w/ chest pain, localized to center, non radiating. Pt has nitro patch on, stating that since receiving patch pain has gone from 7-8 to 2-3. Pt on RA, SR on the monitor. Admission assessment charted, med rec completed. Unit education provided. Pts family notified per pt request. Low fall precautions in place.
[2021-11-30 20:15] VITALS: BP 124/66
[2021-12-01 00:45] VITALS: BP 111/67
[2021-12-01 04:21] LABS: POTASSIUM 4.1 mmol/L (3.5-5.1)
[2021-12-01 04:45] VITALS: BP 126/71
[2021-12-01 05:02] LABS: HEMATOCRIT 39.3 % (42.0-52.0); HEMOGLOBIN 12.4 gm/dL (14.0-18.0); MCHC 31.5 g/dL (28.0-37.0); MCV 88.9 fL (80.0-100.0); RBC 4.42 mil/uL (4.50-6.00); WBC 5.1 thou/uL (4.0-11.0)
--- NOTE | 2021-12-01 06:07 | NUR ---
Patient making slow progress towards outcome goals. Vital signs and rhythm stable. Denies pain this morning. Troponin negative. Up adlib without difficulty. NPO after MN for heart cath.
[2021-12-01] MEDS ORDERED: ZESTORETIC 20-1 EAC3 PO (07:21)
[2021-12-01 07:44] VITALS: BP 135/84
--- NOTE | 2021-12-01 08:07 | HC ---
[facility] [place] [address] CONSULTATION Name: EMILIANO CHANG Room #: 213-P ADM IN M.R.#: [id number] Admission: 11/30/21 Attend Phys: Jeremiah Gonsalves MD Discharge: Date of : 64 Report #: [id number] THIS REPORT FOR: cc: Elva Vidal K. Steven DO Park, Jin S. MD ~ DATE OF SERVICE: 11/30/2021 CARDIOLOGY CONSULTATION INDICATION: Chest pain. HISTORY OF PRESENT ILLNESS: This is a 61-year-old gentleman with a history of PA, PCI, CVA, hypertension, hypercholesterolemia, edema and sciatica, presenting with chest pain. Over the past 2-3 days, he has been experiencing a discomfort across the substernal and left chest area. Symptoms started 3 days ago after he had done pushups against the counter. It would come and go, not associated with any shortness of breath or diaphoresis. It did not change with eating foods or drinking liquids. It is somewhat mildly reproducible with palpation over the substernal area. There is no history of fever, nausea, chills or diarrhea. PAST MEDICAL HISTORY: Non-ST elevation PA in 2018, undergoing stent placement to the LAD, history of CVA in 2019 with residual right sided weakness, history of lumbar fusion. History of hypertension, GERD, and hypercholesterolemia. ALLERGIES: None. MEDICATIONS: At home include aspirin, atorvastatin 40, Plavix once a day, levothyroxine, lisinopril, and omeprazole,. SOCIAL HISTORY: Denies tobacco use. FAMILY HISTORY: Negative for premature CAD. REVIEW OF SYSTEMS: A full 10-point review of systems performed, only the pertinent positives and negatives are described in the HPI. PHYSICAL EXAMINATION: VITAL SIGNS: Blood pressure is 140/85, heart rate is 90 beats per minute. GENERAL APPEARANCE: She is a well-developed, well-nourished male in no acute distress. HEENT: Normocephalic, atraumatic. Oral mucosa moist. NECK: Supple. LUNGS: Clear to auscultation. CARDIAC: Regular rate and rhythm, S1, S2 positive. ABDOMEN: Soft, nontender. [facility] [address] [place] [address] CONSULTATION Name: EMILIANO CHANG Room #: 213-P [facility] IN M.R.#: [id number] Admission: 11/30/21 Attend Phys: Jeremiah Gonsalves MD Discharge: Date of : 64 Report #: [id number] EXTREMITIES: No cyanosis, trace to 1+ bilateral lower extremity edema. DIAGNOSTIC DATA: ECG reveals sinus rhythm, nonspecific T-wave abnormality. LABORATORY DATA: Hemoglobin 13.0, creatinine is 1.0. Troponin is negative. ASSESSMENT AND PLAN: 1. Chest pain syndrome, he has had symptoms for the past 2-3 days, not related to physical exertion. Differential diagnosis includes ischemia, musculoskeletal, GI. Continue with serial troponin levels. If he remains clinically stable, consider discharge planning and outpatient testing. 2. Hypertension, continue current regimen. 3. Hypercholesterolemia, continue with statin therapy. 4. Cerebrovascular accident, continue on Plavix therapy. 5. Edema, low salt diet recommended. <ELECTRONICALLY SIGNED> By: Galo Mar MD 12/01/21806 [id number] Galo Mar MD /nt
--- NOTE | 2021-12-01 10:11 | NUR ---
Assumed care of pt this AM. Pt is A&O x4, on RA, SR on the monitor. Pt denying any chest pain today. Plan for pt to DC today. Pt up ad minor in the room. Fall education performed.
[2021-12-01] MEDS ORDERED: PROTONIX40 M2 PO (12:17)
[2021-12-01 12:21] VITALS: BP 135/84
--- NOTE | 2021-12-02 07:08 | EKG ---
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: TG : 1960 Requested By: Wade Humprhies Order Number: [id number] MD: Spenser Noguera Measurements Intervals [place] Rate: 90 P: 36 ID: [id number] QRS: 18 QRSD: 88 T: 12 QT: 381 QTc: 467 Interpretive Statements Sinus rhythm Nonspecific repol abnormality, inferior leads Compared to ECG 10/14/2020 07:42:52 Early repolarization now present ST (T wave) deviation no longer present Electronically Signed On 12-02-2021 7:08:00 INTERNATIONAL ACCOUNTING MANAGER by Spenser Noguera [email or web address] <ELECTRONICALLY SIGNED> By: Spenser Noguera MD, [facility] 12/02/21 0708 1346 1346 Spenser Noguera MD, [facility] /EPI
--- NOTE | 2021-12-02 10:15 | NUR ---
S.C. CONSULT [id number] COULD NOT BE COMPLETED BY THIS INSTRUMENTATION AND CONTROLS DESIGNER. THE PATIENT WAS DISCHARGED WITHIN 24 HOURS ON A THURSDAY, BEFORE A INSTRUMENTATION AND CONTROLS DESIGNER WAS HERE TO VISIT HIM.
== END 2021-12-01 13:04 | disposition home or self-care (01) | DRG 303 ==
LOC: ER 13:35 → EROBS 15:35 → 2N 16:24
PROVIDERS: Emergency Medicine; ADMIT Hospitalist; ATTEND Hospitalist
DX: I25.119 Atherosclerotic heart disease of native coronary artery with unspecified angina pectoris (principal); I10 Essential (primary) hypertension; E78.5 Hyperlipidemia, unspecified; Z86.73 Personal history of transient ischemic attack (TIA), and cerebral infarction without residual deficits; E78.00 Pure hypercholesterolemia, unspecified; Z20.822 Contact with and (suspected) exposure to COVID-19
CPT/HCPCS: 10081